=== PATIENT | female | born 1935 | race Caucasian/White ===

== ENCOUNTER 2016-10-30 19:39 | Emergency (ER) | payer MEDICARE, OTHER ==
[~2016-10-30] VITALS: Ht 167.6 cm; Wt 102.6 kg
[2016-10-30 19:54] VITALS: Ht 167.6 cm; Wt 102.6 kg
[2016-10-30 20:48] VITALS: TEMP 98.6
[2016-10-30 20:54] LABS: ADD SCAN DIFF NO
[2016-10-30 20:59] LABS: BASOPHIL # 0.1 10^3/ul (0.0-0.1); BASOPHILS % 0.8 % (0.0-2.0); EOSINOPHILS # 0.3 10^3/ul (0.0-0.5); EOSINOPHILS % 3.4 % (0.0-7.0); HEMATOCRIT 42.3 % (37.0-47.0); HEMOGLOBIN 13.6 g/dl (12.0-16.0); LYMPHOCYTES # 2.2 10^3/ul (0.8-2.9); MEAN CORPUSCULAR HEMOGLOBIN 31.2 pg (29.0-33.0); MEAN CORPUSCULAR HGB CONC 32.2 g/dl (32.0-37.0); MEAN PLATELET VOLUME 10.7 fl (7.4-10.4); MONOCYTE # 0.7 10^3/ul (0.3-0.9); MONOCYTES % 9.6 % (0.0-11.0); NEUTROPHIL # 4.3 10^3/ul (1.6-7.5); NEUTROPHILS % 57.1 % (39.0-77.0); PLATELET COUNT 178 10^3/UL (140-415); RED BLOOD COUNT 4.36 10^6/ul (4.20-5.40); RED CELL DISTRIBUTION WIDTH 12.8 % (11.5-14.5); WHITE BLOOD COUNT 7.6 10^3/ul (4.8-10.8)
[2016-10-30 21:08] LABS: POTASSIUM 4.2 mmol/L (3.5-5.1)
--- NOTE | 2016-10-30 21:08 | RADRPT ---
PROCEDURE: XR Chest. CLINICAL INDICATION: Cough TECHNIQUE: Single frontal view of the chest was obtained COMPARISON: None FINDINGS: Cardiomegaly. Atherosclerotic calcifications in the tortuous thoracic aorta. Mild patchy air space disease.. There is no pleural effusion or pneumothorax. IMPRESSION: Cardiomegaly and mild failure. RPTAT: [facility] Physician Zachery Date Time Electronically viewed and signed by Princess Faustin Physician on 10/30/2016 21:07 RS/
[2016-10-30 21:10] LABS: CREATININE 0.8 mg/dl (0.44-1.00)
[2016-10-30 21:11] LABS: CALCIUM 8.9 mg/dl (8.4-10.2)
[2016-10-30] MEDS ORDERED: ACETAMINOPHEN 325 MG TAB PO ONE (21:30)
--- NOTE | 2016-10-30 22:07 | RADRPT ---
PROCEDURE: CT brain without contrast CLINICAL INDICATION: Headaches TECHNIQUE: A CT of the brain was performed utilizing axial sections from the skull base through th e vertex without contrast. Sagittal and coronal images were also reformatted. The exam CTDIvol = 39. 64 mGy and DLP = 634.23 mGy-cm. COMPARISON: None available FINDINGS: No acute intracranial hemorrhage is identified. There is no mass effect or midline shift. No extra -axial fluid collection is seen. The ventricles and sulci are normal in size and configuration for the patient's provided age of 81 years consistent with age-appropriate generalized atrophy. The den sity of the brain is within normal limits. Diaz-white differentiation is preserved with no findings to suggest an acute ischemic infarct. The fourth ventricle is midline and there is no density alteration within the prashanth or cerebellum. The osseous structures are unremarkable. Chronic appearing mucous retention cyst or polyp within th e right maxillary sinus floors present. The remaining included paranasal sinuses and mastoid air ce lls are clear. RPTAT:HJJR IMPRESSION: 1.Appropriate generalized cerebral atrophy for the patient's provided age with no evidence of acute intracranial abnormality or mass effect. 2. Chronic-appearing right maxillary sinus disease. Physician Aicha Date Time Electronically viewed and signed by Physician Aicha on 10/30/2016 22:07 JR/
--- NOTE | 2016-10-30 22:54 | ERD ---
ER Documentation Chief Complaint Date/Time DATE: 10/30/16 TIME: 22:42 Chief Complaint COUGH X3 DAYS, ALSO C/O SINUS HEADACHES. HX AFIB HPI 81-year-old female with a history of hypertension, chronic atrial fibrillation, hyperlipidemia, depression, restless leg syndrome, late onset Alzheimer disease and restless leg syndrome brought to the ED by her daughter for evaluation of a one-week history of cough now with greenish sputum. Denies shortness of breath. Chronic rhinorrhea and allergic rhinitis but no URI symptoms, body aches, sore throat or fevers. Denies leg pain or swelling. No chest pain or palpitations. No abdominal pain, nausea vomiting. Mild, gradual onset generalized headache which she has had intermittently but now exacerbated by coughing. Denies neck or back pain. No other relieving or exacerbating factors. ROS All systems reviewed and are negative except as per history of present illness. Medications Home Meds Active Scripts Azithromycin* (Azithromycin*) 500 Mg Tablet, 500 MG PO DAILY, #6 TAB Prov:ALEXA ARAGON MD 10/30/16 Albuterol Sulfate* (Proair HFA*) 8.5 Gm Hfa.aer.ad, 2 PUFF INH Q6H Y for WHEEZING AND SOB, #1 INHALER Prov:ALEXA ARAGON MD 10/30/16 Allergies Allergies: Coded Allergies: codeine (Verified Allergy, Unknown, RASH ON HAND, 03/27/16) PMhx/Soc Reviewed in chart. As per HPI. History of Surgery: Yes (bi-lateral knee and hip replacement , thyroidectomy, 5 back surgeries) Anesthesia Reaction: No Hx Neurological Disorder: Yes (Alzheimer's) Hx Respiratory Disorders: No Hx Cardiac Disorders: Yes (htn, high cholesterol, AFIB) Hx Psychiatric Problems: Yes (Depression, RLS) Hx Miscellaneous Medical Probl: No Hx Alcohol Use: No Hx Substance Use: No Hx Tobacco Use: No Smoking Status: Never smoker FmHx No stroke or cancer. Physical Exam Vitals Vital Signs Date Time Temp Pulse Resp B/P Pulse Ox O2 Delivery O2 Flow Rate FiO2 10/30/16 23:06 74 16 156/88 100 Room Air 10/30/16 20:48 98.6 79 17 148/98 96 Room Air 10/30/16 19:54 98.4 76 20 140/85 95 Physical Exam Const: Alert, elderly, no acute distress. Head: Atraumatic Eyes: Normal Conjunctiva, pupils equal reactive to light, extraocular movements are intact. ENT: Normal External Ears, Nose and Mouth. Neck: Full range of motion. Nontender. No JVD. Resp: Breath sounds are equal bilaterally. No rales, rhonchi or wheezes. Cardio: Regular rate and rhythm, no murmurs Abd: Soft, non tender, non distended. Normal bowel sounds Skin: No petechiae or rashes Back: No midline or flank tenderness Ext: No cyanosis, or edema. No calf swelling or tenderness. Neur: Awake and alert. No focal deficit observed. Psych: Normal Mood and Affect Result Diagram: 10/30/16201410/30/162014 Results 24 hrs Laboratory Tests Test 10/30/16 20:15 Anion Gap 14 Basophils # 0.110^3/ul Basophils % 0.8% Blood Urea Nitrogen 16mg/dl Calcium Level 8.9mg/dl Carbon Dioxide Level 33mmol/L Chloride Level 103mmol/L Creatinine 0.80mg/dl Eosinophils # 0.310^3/ul Eosinophils % 3.4% Glucose Level 98mg/dl Hematocrit 42.3% Hemoglobin 13.6g/dl Lymphocytes # 2.210^3/ul Lymphocytes % 29.0% Mean Corpuscular Hemoglobin 31.2pg Mean Corpuscular Hemoglobin Concent 32.2g/dl Mean Corpuscular Volume 97.0fl Mean Platelet Volume 10.7fl Monocytes # 0.710^3/ul Monocytes % 9.6% Neutrophils # 4.310^3/ul Neutrophils % 57.1% Nucleated Red Blood Cells # 0.010^3/ul Nucleated Red Blood Cells % 0.0/100WBC Platelet Count 85529^3/UL Potassium Level 4.2mmol/L Red Blood Count 4.3610^6/ul Red Cell Distribution Width 12.8% Sodium Level 146mmol/L White Blood Count 7.610^3/ul Current Medications Medications (Trade) Dose Ordered Sig/Carol Route PRN Reason Start Time Stop Time Status Last Admin Dose Admin Acetaminophen (Tylenol Tab) 650 mg ONCE ONCE PO 10/30/16 21:30 10/30/16 21:31 DC 10/30/16 21:17 EKG: Time: 20:15. Sinus rhythm. No acute ST-T wave changes. Normal OK QRS. No axis deviation or ectopy. EP interpretation: Normal ECG. IMAGING: PROCEDURE: XR Chest. CLINICAL INDICATION: Cough TECHNIQUE: Single frontal view of the chest was obtained COMPARISON: None FINDINGS: Cardiomegaly. Atherosclerotic calcifications in the tortuous thoracic aorta. Mild patchy air space disease.. There is no pleural effusion or pneumothorax. IMPRESSION: Cardiomegaly and mild failure. RPTAT: [facility] Physician Zachery Date Time Electronically viewed and signed by Physician Zachery on 10/30/2016 21:07 RS/ Procedures/MDM DOCUMENTS REVIEWED: ED nurse, no prior records available. Clinic summary. MEDICAL DECISION MAKIN-year-old female with a history of hypertension, chronic atrial fibrillation, hyperlipidemia, depression, restless leg syndrome, late onset Alzheimer disease and restless leg syndrome brought to the ED by her daughter for evaluation of a one-week history of cough and headache. Presentation not consistent with subarachnoid hemorrhage and no CT evidence of acute bleed, infarct, mass or hydrocephalus. No signs of meningitis or encephalitis hence lumbar puncture not indicated. Pain improved significantly with Latonia 5/325. Cough and chest x-ray reveals airspace disease and cardiomegaly but she has no other signs of congestive heart failure. Possible bronchitis will be treated with a trial of inhaled beta agonists and Z-Jaylan. Pulmonary embolism is unlikely. Stable for discharge precautionary instructions and outpatient follow-up as counseled. Counseled patient and family regarding diagnostic workup, diagnosis and need for followup. Understands to return to ED if symptoms recur, worsen or any other concerns. Departure Diagnosis: Primary Impression: Cough Additional Impressions: Cephalgia Headache type: unspecified Headache chronicity pattern: unspecified pattern Intractability: not intractable Qualified Code: R51 - Nonintractable headache, unspecified chronicity pattern, unspecified headache type Essential hypertension Condition: Stable ALEXA ARAGON MD Oct 30, 2016 22:53
[2016-10-30] MEDS ORDERED: ALBU8.5H3 INH (22:58)
[2016-10-30] MEDS ORDERED: AZIT500T5 PO (22:58)
[2016-10-30 23:06] VITALS: BP 156/88; PULSE 74; RESP 16
== END 2016-10-30 23:06 | disposition home or self-care (01) ==
LOC: E/R 19:39
DX: R05 Cough (principal); R51 Headache; I10 Essential (primary) hypertension; G30.1 Alzheimer's disease with late onset; Z96.643 Presence of artificial hip joint, bilateral; Z96.653 Presence of artificial knee joint, bilateral
CPT/HCPCS: 70450; 71010; 80048; 85025; 93005

== ENCOUNTER 2017-08-28 10:52 | Inpatient (IN) | END 2017-09-05 17:40 | DRG 964 ==

== ENCOUNTER 2017-11-11 13:20 | Inpatient (IN) | END 2017-11-18 18:30 | DRG 871 ==

== ENCOUNTER 2017-12-31 16:30 | Inpatient (IN) | END 2018-01-02 17:46 | DRG 309 ==

== ENCOUNTER 2018-07-25 13:42 | Emergency (ER) | END 2018-07-25 15:53 | disposition home or self-care (01) ==

== ENCOUNTER 2018-10-17 13:42 | Emergency (ER) | payer MEDICARE, OTHER ==
[~2018-10-17] VITALS: Ht 162.6 cm; Wt 94.1 kg
[~2018-10-17 13:42] MED LIST: BACITUD TOP; BACL10TA PO; GABA300C16 PO; MEMA10TA PO; TRAM50TA PO
[2018-10-17 13:52] VITALS: BP 126/79; PULSE 69; RESP 20; Ht 162.6 cm; Wt 94.1 kg
== END 2018-10-17 16:46 | disposition left against medical advice (07) ==
LOC: E/R 13:42
DX: Z53.21 Procedure and treatment not carried out due to patient leaving prior to being seen by health care provider (principal)

== ENCOUNTER 2018-10-19 15:34 | Inpatient (IN) | payer MEDICARE, OTHER ==
[~2018-10-19] VITALS: Ht 180.3 cm; Wt 101.9 kg
[2018-10-19] VITALS (7 sets, daily range): BP systolic 145; BP diastolic 85; PULSE 83–172; RESP 20; Ht 180.3 cm; Wt 101.9 kg
[2018-10-19] MEDS ORDERED: AZITHROMYCIN 500MG/NS (PMX) 250 ML IV STA (15:56)
[2018-10-19] MEDS ORDERED: CEFTRIAXONE 1 GM/50 ML (PMX) 50 ML IVPB STA (15:56)
[2018-10-19] MEDS ORDERED: ALBUTEROL 0.5% (NEB) 2.5 MG/0.5 ML AMP INH STA (15:59)
[2018-10-19] MEDS ORDERED: IPRATROPIUM (NEB) 0.5 MG/2.5 ML AMP INH STA (15:59)
[2018-10-19] MEDS ORDERED: DEXAMETHASONE 10 MG/ML 1 ML INJ IV ONE (16:00)
[2018-10-19] MEDS ORDERED: IOHEXOL 100 ML ONE (17:43)
[2018-10-19] MEDS ORDERED: SOD CHLORIDE 0.9% 100 ML ONE (17:43)
[2018-10-19] MEDS ORDERED: traMADol 50 MG TAB PO PRN (18:30)
[2018-10-19] MEDS ORDERED: METO-448 PO (18:48)
[2018-10-19] MEDS ORDERED: FLUO10TA PO (18:49)
[2018-10-19] MEDS ORDERED: APIX5TAB PO (18:49)
[2018-10-19] MEDS ORDERED: DONE10TA7 PO (18:49)
[2018-10-19] MEDS ORDERED: FER325 PO (18:49)
--- NOTE | 2018-10-19 18:49 | HP ---
Date/Time of Note Date/Time of Note DATE: 10/19/18 TIME: 18:36 Assessment/Plan VTE Prophylaxis SCD applied (from Nsg): Yes Pharmacological prophylaxis: apixaban Lines/Catheters IV Catheter Type (from Nrsg): Saline Lock Assessment/Plan Assessment/Plan 1. Acute shortness of breath - came in saturating 60% and placed on NC with improvement in saturations - CXR concerning for pneumonia and CTA performed but results pending - Will start on broad spectrum antibiotics for CAP - Nebs PRN - O2 as needed 2. DVT - recently seen by PMD who repeat dopplers and states clot dissolving - continue on Eliquis 3. Community acquired Pneumonia - nebs, IV antibiotics, O2 PRN 4. Anemia, iron deficiency - continue home iron supplements 5. Mild dementia - continue Namenda 6. Elevated BNP - will give a dose of Lasix - ECHO ordered to assess EF 7. Diet - Cardiac 8. Disposition - Admit to telemetry for treatment of CAP and hypoxia Result Diagram: 10/19/18 1606 10/19/18 1606 Results 24hrs Laboratory Tests Test 10/19/18 16:06 10/19/18 17:19 10/19/18 18:25 White Blood Count 12.7 #H Red Blood Count 3.79 L Hemoglobin 9.6 #L Hematocrit 34.5 L Mean Corpuscular Volume 91.0 Mean Corpuscular Hemoglobin 25.3 L Mean Corpuscular Hemoglobin Concent 27.8 L Red Cell Distribution Width 15.4 H Platelet Count 313 # Mean Platelet Volume 10.0 Immature Granulocytes % 0.900 H Neutrophils % 77.6 H Lymphocytes % 17.4 Monocytes % 3.3 Eosinophils % 0.3 Basophils % 0.5 Nucleated Red Blood Cells % 0.0 Immature Granulocytes # 0.110 H Neutrophils # 9.8 H Lymphocytes # 2.2 Monocytes # 0.4 Eosinophils # 0.0 Basophils # 0.1 Nucleated Red Blood Cells # 0.0 Prothrombin Time 19.1 H Prothrombin Time Ratio 1.5 INR International Normalized Ratio 1.60 Activated Partial Thromboplast Time 29.6 Sodium Level 140 Potassium Level 3.8 Chloride Level 106 Carbon Dioxide Level 31 Anion Gap 3 L Blood Urea Nitrogen 16 Creatinine 0.58 Est Glomerular Filtrat Rate mL/min Glucose Level 188 Calcium Level 8.3 L Total Bilirubin 0.3 Direct Bilirubin 0.00 Indirect Bilirubin 0.3 Aspartate Amino Transf (AST/SGOT) 23 Alanine Aminotransferase (ALT/SGPT) 21 Alkaline Phosphatase 94 Troponin I < 0.012 B-Type Natriuretic Peptide 1690 H Total Protein 6.7 Albumin 3.6 Globulin 3.10 Albumin/Globulin Ratio 1.16 Urine Color RED Urine Clarity CLOUDY A Urine pH 5.0 Urine Specific [place] 1.028 Urine Ketones NEGATIVE Urine Nitrite POSITIVE A Urine Bilirubin 1+ H Urine Urobilinogen NEGATIVE Urine Leukocyte Esterase TRACE A Urine Microscopic RBC > 182 H Urine Microscopic WBC 52 H Urine Squamous Epithelial Cells FEW Urine Bacteria MANY A Urine Mucus FEW A Urine Yeast (Budding) FEW A Urine Hemoglobin 3+ H Urine Glucose NEGATIVE Urine Total Protein 2+ H POC Venous Lactate 2.8 *H HPI/ROS Admit Date/Time Admit Date/Time 10/19/18 1830 Hx of Present Illness 83 yo F with PMH DVT, dementia, and anemia presented to ED with worsening shortness of breath since Monday. Patient states she was experiencing headache, nasal congestion, and subjective fevers since Monday. She also felt as if she couldn't catch her breath which started when she was laying supine. She then developed cough with productive sputum on Monday and decided to finally seek treatment. Family at bedside and admits people in their congregation have been all getting sick with flu like symptoms and she seems to be the last one to contract something. She was seen by her PCP 2 weeks ago for wellness check and diagnosed with anemia as well. Per family, she was in a correction most of 2017 and after discharge was complaining of pain in left left as well as swelling. She was diagnosed with DVT in June of 2018. Patient denies chest pain, nausea, vomiting, wheezing, dizziness, palpitations, constipation, diarrhea, or urinary issues. Of note she was found with O2 saturations 60% in the field and improved after neb treatments. ROS All 12 systems reviewed and pertinent positives as per HPI. All others negative. Constitutional: No chills, No nausea Eyes: No discharge ENT: congestion Respiratory: cough, shortness of breath, sputum; No wheezing Cardiovascular: edema; No chest pain, No lightheadedness, No palpitations Gastrointestinal: No pain, No constipation, No diarrhea, No nausea, No vomiting Genitourinary: no complaints Musculoskeletal: no complaints Skin: no complaints Neurologic: headache; No confusion, No focal-weakness Endocrine: No dry skin Lymphatic: no complaints Psychological: nl mood/affect Immunologic: no complaints PMH/Family/Social Past Medical History Medical History: other (dementia, anemia, DVT) Medications Current Medications Baclofen (Lioresal) 10 mg Q8 PO ; Start 10/19/18 at 22:00; Status UNV Gabapentin (Neurontin) 300 mg TID PO ; Start 10/19/18 at 21:00; Status UNV Memantine (Namenda) 10 mg DAILY PO ; Start 10/20/18 at 09:00; Status UNV Tramadol HCl (Ultram) 50 mg Q6H PRN PO PAIN; Start 10/19/18 at 18:30; Status UNV Apixaban (Eliquis) 5 mg BID PO ; Start 10/19/18 at 21:00; Status UNV Coded Allergies: codeine (Verified Allergy, Unknown, RASH ON HAND, 12/28/17) Past Surgical History Past Surgical Hx: other (knee replacement x2, back surgery) Family History Significant Family History: no pertinent family hx Social History Alcohol Use: none Smoking Status: Never smoker Drug Use: none Exam/Review of Systems Vital Signs Vitals Vital Signs Date Temp Pulse Resp B/P (MAP) Pulse Ox O2 O2 Flow FiO2 Time Delivery Rate 10/19/18 98.2 77 22 145/88 90 16:06 (107) 10/19/18 Nasal 5 15:45 Cannula Exam Exam General: Patient is a pleasant female, no acute distress, dry mucous membranes HEENT: Atraumatic, normocephalic. The pupils are equal, round and reactive. Ext raocular motor are intact Neck: Supple with full range of motion. No rigidity or meningismus Chest: nontender Lungs: Clear to auscultation bilaterally no crackles rales or wheezing Heart: Normal S1-S2, Regular rate and rhythm. no murmurs Abdomen: Soft , nontender, nondistended , bowel sounds are present. No guarding no rebound tenderness , No masses or organomegaly. No costovertebral temporal angle mass Extremities: Scars appreciated on knees bilaterally, swelling but no edema LE Neurologic: Normal mental status, speech normal, cranial nerves II through XII are intact, motor and sensory are intact, Additional Comments Home medications reviewed PROCEDURE: XR Chest. CLINICAL INDICATION: Possible Sepsis TECHNIQUE: Portable AP view of the chest was obtained. COMPARISON: CR CHEST 10/30/2016 FINDINGS: Bibasilar pulmonary opacities with small pleural effusions. No pneumothorax. Mild cardiomegaly. Diffuse osteopenia. IMPRESSION: Small pleural effusions with adjacent air space disease. Findings concerning for pneumonia or aspiration in the setting of reported sepsis. RPTAT: XX Tigist Arenas Physician Date Time Electronically viewed and signed by Tigist Arenas, Physician on 10/19/2018 17:00 ASHWIN TAYLOR MD Oct 19, 2018 18:48
[2018-10-19] MEDS ORDERED: TEMA15CA6 PO (18:51)
[2018-10-19] MEDS ORDERED: PRAV40TA76 PO (18:52)
[2018-10-19] MEDS ORDERED: DOCUSATE SODIUM 100 MG CAP PO PRN (19:00)
[2018-10-19] MEDS ORDERED: ACETAMINOPHEN 325 MG TAB PO PRN (19:00)
[2018-10-19] MEDS ORDERED: MAGNESIUM HYDROXIDE 30ML CUP PO PRN (19:00)
[2018-10-19] MEDS ORDERED: ALBUTEROL 0.083% (NEB) 2.5 MG/3 ML AMP NEB PRN (19:00)
[2018-10-19] MEDS ORDERED: AZITHROMYCIN 500MG/NS (PMX) 250 ML IV SCH (19:00)
[2018-10-19] MEDS ORDERED: NACL 0.9% 3 ML SYG IV SCH (19:00)
[2018-10-19] MEDS ORDERED: CEFTRIAXONE 1 GM/50 ML (PMX) 50 ML IVPB SCH (19:00)
[2018-10-19] MEDS ORDERED: FUROSEMIDE 40 MG INJ IV ONE (19:00)
[2018-10-19] MEDS ORDERED: ONDANSETRON 4 MG INJ IV PRN (19:00)
[2018-10-19] MEDS: GABAPENTIN 300 MG CAP PO SCH (21:43)
[2018-10-19] MEDS: FAMOTIDINE 20 MG TAB PO SCH (21:44)
[2018-10-19] MEDS: BACLOFEN 10 MG TAB PO SCH (21:44)
[2018-10-19] MEDS: APIXABAN 5 MG TABLET PO SCH (21:45)
[2018-10-19] MEDS ORDERED: SOD CHLORIDE 0.9% 500 ML IV ONE (22:00)
[2018-10-19] MEDS ORDERED: METOPROLOL 5 MG INJ IV ONE (23:00)
[2018-10-19] MEDS ORDERED: DILTIAZEM 25 MG INJ IV ONE (23:27)
[2018-10-20] VITALS (10 sets, daily range): BP systolic 101–124; BP diastolic 57–78; PULSE 58–145; RESP 16–22
[2018-10-20] MEDS ORDERED: DILTIAZEM 25 MG INJ IV ONE (01:00)
[2018-10-20] MEDS: METOPROLOL 25 MG TAB PO SCH ×4 (02:17→21:35)
[2018-10-20] MEDS ORDERED: DILTIAZEM-D5W 125MG/125ML DRIP 125 ML IV SCH (04:15)
[2018-10-20] MEDS: BACLOFEN 10 MG TAB PO SCH ×3 (06:30→21:34)
[2018-10-20] MEDS ORDERED: FUROSEMIDE 40 MG INJ IV SCH (09:00)
[2018-10-20] MEDS ORDERED: METOPROLOL 25 MG TAB PO SCH (09:00)
[2018-10-20] MEDS: MEMANTINE 10 MG TAB PO SCH (09:53)
[2018-10-20] MEDS: FERROUS SULFATE (EC) 325 MG TAB PO SCH (09:53)
[2018-10-20] MEDS: FAMOTIDINE 20 MG TAB PO SCH ×2 (09:53→21:34)
[2018-10-20] MEDS: APIXABAN 5 MG TABLET PO SCH ×2 (09:53→21:34)
[2018-10-20] MEDS: GABAPENTIN 300 MG CAP PO SCH ×3 (09:53→21:34)
--- NOTE | 2018-10-20 09:54 | PN ---
Date/Time of Note Date/Time of Note DATE: 10/20/18 TIME: 09:54 Assessment/Plan VTE Prophylaxis Risk score (from [facility] [place]0 risk: 5 SCD applied (from [facility] [place]): No SCD contraindicated: other Pharmacological prophylaxis: apixaban Lines/Catheters [facility] Saline Lock Assessment/Plan Assessment/Plan 1. Afib with RVR - Cardiology consultation appreciated and will continue on BB and if RVR persists will place on amiodarone 2. Acute on chronic diastolic HF - ECHO results pending - CXR/CT chest shows pulmonary edema - Lasix on board 3. UTI - patient does admit to burning - Urine cx noted with gram neg rods 4. RLE DVT - recently seen by PMD who repeat dopplers and states clot dissolving - continue on Eliquis 5. Anemia, iron deficiency - continue home iron supplements 6. Alzhemiers Dementia - continue Namenda 7. Disposition - continue diuresing and monitoring HR in telemetry - If remains stable, will d/c in next 24-48 hours Result Diagram: 10/20/182 10/20/18 0452 Results 24hrs Laboratory Tests Test 10/19/18 16:06 10/19/18 17:19 10/19/18 18:25 10/19/18 20:44 White Blood Count 12.7 #H Red Blood Count 3.79 L Hemoglobin 9.6 #L Hematocrit 34.5 L Mean Corpuscular 91.0 Volume Mean Corpuscular 25.3 L Hemoglobin Mean Corpuscular 27.8 L Hemoglobin Concent Red Cell 15.4 H Distribution Width Platelet Count 313 # Mean Platelet Volume 10.0 Immature 0.900 H Granulocytes % Neutrophils % 77.6 H Lymphocytes % 17.4 Monocytes % 3.3 Eosinophils % 0.3 Basophils % 0.5 Nucleated Red Blood 0.0 Cells % Immature 0.110 H Granulocytes # Neutrophils # 9.8 H Lymphocytes # 2.2 Monocytes # 0.4 Eosinophils # 0.0 Basophils # 0.1 Nucleated Red Blood 0.0 Cells # Prothrombin Time 19.1 H Prothrombin Time 1.5 Ratio INR International 1.60 Normalized Ratio Activated 29.6 Partial Thromboplast Time Sodium Level 140 Potassium Level 3.8 Chloride Level 106 Carbon Dioxide Level 31 Anion Gap 3 L Blood Urea Nitrogen 16 Creatinine 0.58 Est Glomerular Filtrat Rate mL/min Glucose Level 188 Calcium Level 8.3 L Total Bilirubin 0.3 Direct Bilirubin 0.00 Indirect Bilirubin 0.3 Aspartate Amino 23 Transf (AST/SGOT) Alanine 21 Aminotransferase (AL T/SGPT) Alkaline Phosphatase 94 Troponin I < 0.012 B-Type Natriuretic 1690 H Peptide Total Protein 6.7 Albumin 3.6 Globulin 3.10 Albumin/Globulin 1.16 Ratio Urine Color RED Urine Clarity CLOUDY A Urine pH 5.0 Urine Specific 1.028 [place] Urine Ketones NEGATIVE Urine Nitrite POSITIVE A Urine Bilirubin 1+ H Urine Urobilinogen NEGATIVE Urine Leukocyte TRACE A Esterase Urine Microscopic > 182 H RBC Urine Microscopic 52 H WBC Urine Squamous FEW Epithelial Cells Urine Bacteria MANY A Urine Mucus FEW A Urine Yeast FEW A (Budding) Urine Hemoglobin 3+ H Urine Glucose NEGATIVE Urine Total Protein 2+ H POC Venous Lactate 2.8 *H Lactic Acid Level 3.0 *H Test 10/20/18 04:52 White Blood Count 5.8 # Red Blood Count 3.29 L Hemoglobin 8.5 L Hematocrit 29.7 L Mean Corpuscular 90.3 Volume Mean Corpuscular 25.8 L Hemoglobin Mean Corpuscular 28.6 L Hemoglobin Concent Red Cell 15.4 H Distribution Width Platelet Count 215 # Mean Platelet Volume 10.7 H Immature 0.300 Granulocytes % Neutrophils % 77.0 Lymphocytes % 16.1 Monocytes % 6.4 Eosinophils % 0.0 Basophils % 0.2 Nucleated Red Blood 0.0 Cells % Immature 0.020 Granulocytes # Neutrophils # 4.4 Lymphocytes # 0.9 Monocytes # 0.4 Eosinophils # 0.0 Basophils # 0.0 Nucleated Red Blood 0.0 Cells # Sodium Level 144 Potassium Level 4.2 Chloride Level 105 Carbon Dioxide Level 31 Anion Gap 8 Blood Urea Nitrogen 15 Creatinine 0.63 Est Glomerular Filtrat Rate mL/min Glucose Level 128 # Lactic Acid Level 2.2 *H Calcium Level 8.4 Magnesium Level 2.0 Thyroid Stimulating 1.060 Hormone (TSH) Subjective 24 Hr Interval Summary Free Text/Dictation Patient still with some respiratory distress but improved since admission. Denies any acute issues. Found in afib with RVR this am and started on Cardizem drip. Exam/Review of Systems Exam Vitals Vital Signs Date Temp Pulse Resp B/P (MAP) Pulse Ox O2 O2 Flow FiO2 Time Delivery Rate 10/20/18 67 09:03 10/20/18 Nasal 2.0 07:46 Cannula 10/20/18 98.1 16 101/58 99 07:38 (72) Exam General: Patient is a pleasant female, no acute distress, dry mucous membranes Neck: Supple Chest: nontender Lungs: Clear to auscultation bilaterally no crackles rales or wheezing Heart: Normal S1-S2, irregular rhythm, tachycardia, systolic murmurs Abdomen: Soft , nontender, nondistended , bowel sounds are present. No guarding no rebound tenderness , Extremities: Scars appreciated on knees bilaterally, swelling RLE Results Results 24hrs Laboratory Tests Test 10/19/18 16:06 10/19/18 17:19 10/19/18 18:25 10/19/18 20:44 White Blood Count 12.7 #H Red Blood Count 3.79 L Hemoglobin 9.6 #L Hematocrit 34.5 L Mean Corpuscular 91.0 Volume Mean Corpuscular 25.3 L Hemoglobin Mean Corpuscular 27.8 L Hemoglobin Concent Red Cell 15.4 H Distribution Width Platelet Count 313 # Mean Platelet Volume 10.0 Immature 0.900 H Granulocytes % Neutrophils % 77.6 H Lymphocytes % 17.4 Monocytes % 3.3 Eosinophils % 0.3 Basophils % 0.5 Nucleated Red Blood 0.0 Cells % Immature 0.110 H Granulocytes # Neutrophils # 9.8 H Lymphocytes # 2.2 Monocytes # 0.4 Eosinophils # 0.0 Basophils # 0.1 Nucleated Red Blood 0.0 Cells # Prothrombin Time 19.1 H Prothrombin Time 1.5 Ratio INR International 1.60 Normalized Ratio Activated 29.6 Partial Thromboplast Time Sodium Level 140 Potassium Level 3.8 Chloride Level 106 Carbon Dioxide Level 31 Anion Gap 3 L Blood Urea Nitrogen 16 Creatinine 0.58 Est Glomerular Filtrat Rate mL/min Glucose Level 188 Calcium Level 8.3 L Total Bilirubin 0.3 Direct Bilirubin 0.00 Indirect Bilirubin 0.3 Aspartate Amino 23 Transf (AST/SGOT) Alanine 21 Aminotransferase (AL T/SGPT) Alkaline Phosphatase 94 Troponin I < 0.012 B-Type Natriuretic 1690 H Peptide Total Protein 6.7 Albumin 3.6 Globulin 3.10 Albumin/Globulin 1.16 Ratio Urine Color RED Urine Clarity CLOUDY A Urine pH 5.0 Urine Specific 1.028 [place] Urine Ketones NEGATIVE Urine Nitrite POSITIVE A Urine Bilirubin 1+ H Urine Urobilinogen NEGATIVE Urine Leukocyte TRACE A Esterase Urine Microscopic > 182 H RBC Urine Microscopic 52 H WBC Urine Squamous FEW Epithelial Cells Urine Bacteria MANY A Urine Mucus FEW A Urine Yeast FEW A (Budding) Urine Hemoglobin 3+ H Urine Glucose NEGATIVE Urine Total Protein 2+ H POC Venous Lactate 2.8 *H Lactic Acid Level 3.0 *H Test 10/20/18 04:52 White Blood Count 5.8 # Red Blood Count 3.29 L Hemoglobin 8.5 L Hematocrit 29.7 L Mean Corpuscular 90.3 Volume Mean Corpuscular 25.8 L Hemoglobin Mean Corpuscular 28.6 L Hemoglobin Concent Red Cell 15.4 H Distribution Width Platelet Count 215 # Mean Platelet Volume 10.7 H Immature 0.300 Granulocytes % Neutrophils % 77.0 Lymphocytes % 16.1 Monocytes % 6.4 Eosinophils % 0.0 Basophils % 0.2 Nucleated Red Blood 0.0 Cells % Immature 0.020 Granulocytes # Neutrophils # 4.4 Lymphocytes # 0.9 Monocytes # 0.4 Eosinophils # 0.0 Basophils # 0.0 Nucleated Red Blood 0.0 Cells # Sodium Level 144 Potassium Level 4.2 Chloride Level 105 Carbon Dioxide Level 31 Anion Gap 8 Blood Urea Nitrogen 15 Creatinine 0.63 Est Glomerular Filtrat Rate mL/min Glucose Level 128 # Lactic Acid Level 2.2 *H Calcium Level 8.4 Magnesium Level 2.0 Thyroid Stimulating 1.060 Hormone (TSH) Medications Medication Current Medications Baclofen (Lioresal) 10 mg Q8 PO Last administered on 10/20/18at 06:30; Admin Dose 10 MG; Start 10/19/18 at 22:00 Gabapentin (Neurontin) 300 mg TID PO Last administered on 10/20/18at 09:53; Admin Dose 300 MG; Start 10/19/18 at 21:00 Memantine (Namenda) 10 mg DAILY PO Last administered on 10/20/18at 09:53; Admin Dose 10 MG; Start 10/20/18 at 09:00 Tramadol HCl (Ultram) 50 mg Q6H PRN PO PAIN; Start 10/19/18 at 18:30 Apixaban (Eliquis) 5 mg BID PO Last administered on 10/20/18at 09:53; Admin Dose 5 MG; Start 10/19/18 at 21:00 IV Flush (NS 3 ml) 3 ml PER PROTOCOL IV ; Start 10/19/18 at 19:00 Ondansetron HCl (Zofran Inj) 4 mg Q6H PRN IV NAUSEA/VOMITING; Start 10/19/18 at 19:00 Acetaminophen (Tylenol Tab) 650 mg Q6H PRN PO .PAIN 1-3 OR TEMP; Start 10/19/18 at 19:00 Docusate Sodium (Colace) 100 mg Q12H PRN PO .CONSTIPATION; Start 10/19/18 at 19 :00 Magnesium Hydroxide (Milk Of Mag) 30 ml DAILY PRN PO .CONSTIPATION; Start 10/19/18 at 19:00 Famotidine (Pepcid) 20 mg Q12 PO Last administered on 10/20/18 09:53; Admin Dose 20 MG; Start 10/19/18 at 21:00 Ceftriaxone Sodium 50 ml @ 100 mls/hr Q24H IVPB Last administered on 10/19/18 21:47; Admin Dose 100 MLS/HR; Start 10/19/18 at 19:00 Albuterol (Proventil 0.083% (Neb)) 2.5 mg Q2H RESP THERAPY PRN NEB SHORTNESS OF BREATH; Start 10/19/18 at 19:00 Ferrous Sulfate (Ferrous Sulfate (Ec)) 325 mg DAILY PO Last administered on 10/20/18 09:53; Admin Dose 325 MG; Start 10/20/18 at 09:00 Furosemide (Lasix) 40 mg DAILY IV ; Start 10/20/18 at 09:00 Metoprolol Tartrate (Lopressor) 25 mg BID PO Last administered on 10/20/18 09:54; Admin Dose 25 MG; Start 10/20/18 at 01:00 Diltiazem HCl 125 ml @ 5 mls/hr TITRATE IV Last administered on 10/20/18 04:52; Admin Dose 5 MLS/HR; Start 10/20/18 at 04:15 ASHWIN TAYLOR MD Oct 20, 2018 09:54
[2018-10-20] MEDS: VITAMIN A & D 5 GM OINT PACKET TOP PRN ×2 (12:13→17:20)
--- NOTE | 2018-10-20 13:05 | ERD ---
ER Documentation Chief Complaint Chief Complaint SOB started this morning low o2 saturation HPI This is a 83-year-old female presents for evaluation of shortness of breath, brought in by EMS with a low oxygen saturation, which the report was in the 60s. Patient states that she has been having symptoms for the last 2-3 days, she is worried that she may have had a pneumonia. She has not had any leg swelling, no hemoptysis, no weight gain, no orthopnea or PND. ROS All systems reviewed and are negative except as per history of present illness. Medications Home Meds Reported Medications Pravastatin Sodium* (Pravastatin Sodium*) 40 Mg Tablet, 40 MG PO HS, TAB 10/19/18 Temazepam* (Restoril*) 15 Mg Capsule, 15 MG PO HS PRN for INSOMNIA, CAP 10/19/18 Fluoxetine Hcl* (Fluoxetine Hcl*) 10 Mg Tablet, 10 MG PO DAILY, TAB 10/19/18 Donepezil* (Aricept*) 10 Mg Tablet, 10 MG PO DAILY, TAB 10/19/18 Ferrous Sulfate* (Ferrous Sulfate*) 325 Mg Tabec, 325 MG PO BID, TAB 10/19/18 Apixaban* (Eliquis*) 5 Mg Tablet, 5 MG PO BID, TAB 10/19/18 Metoprolol Tartrate* (Lopressor*) 25 Mg Tab, 25 MG PO BID, #60 TAB 10/19/18 Memantine* (Namenda*) 10 Mg Tablet, 10 MG PO DAILY, #30 TAB 12/28/17 Tramadol Hcl* (Ultram*) 50 Mg Tablet, 50 MG PO Q6H PRN for PAIN, TAB 12/28/17 Discontinued Reported Medications Gabapentin* (Gabapentin*) 300 Mg Capsule, 300 MG PO TID, #90 CAP 12/28/17 Baclofen* (Baclofen*) 10 Mg Tablet, 10 MG PO Q8, TAB 12/28/17 Discontinued Scripts Bacitracin* (Bacitracin Oint (UD)*) 1 Applic Oint, 1 APPLIC TOP ONCE, #7 PKT APPLY TO Prov:CLAIRE ALLRED PA-C 07/25/18 Allergies Allergies: Coded Allergies: codeine (Verified Allergy, Unknown, RASH ON HAND, 10/19/18) PMhx/Soc History of Surgery: Yes (B Hip/knee , Thyroidectomy) Anesthesia Reaction: No (unk) Hx Neurological Disorder: No Hx Respiratory Disorders: No Hx Cardiac Disorders: Yes (HTN, Paroxymal Afib) Hx Psychiatric Problems: Yes (Depression, Dementia) Hx Miscellaneous Medical Probl: No (DVT, PNA, ANEMIA , MILD DEMENTIA .S/P RAHEEM.TKA .) Hx Alcohol Use: No Hx Substance Use: No Hx Tobacco Use: No Smoking Status: Unknown if ever smoked Physical Exam Vitals Vital Signs Date Temp Pulse Resp B/P (MAP) Pulse Ox O2 O2 Flow FiO2 Time Delivery Rate 10/19/18 98.2 77 22 145/88 90 16:06 (107) 10/19/18 Nasal 5 15:45 Cannula 10/19/18 Nasal 5.0 15:45 Cannula Physical Exam Const: No acute distress Head: Atraumatic Eyes: Normal Conjunctiva ENT: Normal External Ears, Nose and Mouth. Neck: Full range of motion. No meningismus. Resp: There is bilateral expiratory wheezing, there is no JVD Cardio: Regular rate and rhythm, no murmurs Abd: Soft, non tender, non distended. Normal bowel sounds Skin: No petechiae or rashes Back: No midline or flank tenderness Ext: No cyanosis, or edema Neur: Awake and alert Psych: Normal Mood and Affect Result Diagram: 10/20/1845110/20/18 0452 Results 24 hrs Laboratory Tests Test 10/19/18 16:06 10/19/18 17:19 White Blood Count 12.7 10^3/ul Red Blood Count 3.79 10^6/ul Hemoglobin 9.6 g/dl Hematocrit 34.5 % Mean Corpuscular Volume 91.0 fl Mean Corpuscular Hemoglobin 25.3 pg Mean Corpuscular Hemoglobin Concent 27.8 g/dl Red Cell Distribution Width 15.4 % Platelet Count 313 10^3/UL Mean Platelet Volume 10.0 fl Immature Granulocytes % 0.900 % Neutrophils % 77.6 % Lymphocytes % 17.4 % Monocytes % 3.3 % Eosinophils % 0.3 % Basophils % 0.5 % Nucleated Red Blood Cells % 0.0 /100WBC Immature Granulocytes # 0.110 10^3/ul Neutrophils # 9.8 10^3/ul Lymphocytes # 2.2 10^3/ul Monocytes # 0.4 10^3/ul Eosinophils # 0.0 10^3/ul Basophils # 0.1 10^3/ul Nucleated Red Blood Cells # 0.0 10^3/ul Prothrombin Time 19.1 Sec Prothrombin Time Ratio 1.5 INR International Normalized Ratio 1.60 Activated Partial Thromboplast Time 29.6 Sec Sodium Level 140 mmol/L Potassium Level 3.8 mmol/L Chloride Level 106 mmol/L Carbon Dioxide Level 31 mmol/L Anion Gap 3 Blood Urea Nitrogen 16 mg/dl Creatinine 0.58 mg/dl Est Glomerular Filtrat Rate mL/min mL/min Glucose Level 188 mg/dl Calcium Level 8.3 mg/dl Total Bilirubin 0.3 mg/dl Direct Bilirubin 0.00 mg/dl Indirect Bilirubin 0.3 mg/dl Aspartate Amino Transf (AST/SGOT) 23 IU/L Alanine Aminotransferase (ALT/SGPT) 21 IU/L Alkaline Phosphatase 94 IU/L Troponin I < 0.012 ng/ml B-Type Natriuretic Peptide 1690 PG/ML Total Protein 6.7 g/dl Albumin 3.6 g/dl Globulin 3.10 g/dl Albumin/Globulin Ratio 1.16 Urine Color RED Urine Clarity CLOUDY Urine pH 5.0 Urine Specific [place] 1.028 Urine Ketones NEGATIVE mg/dL Urine Nitrite POSITIVE mg/dL Urine Bilirubin 1+ mg/dL Urine Urobilinogen NEGATIVE mg/dL Urine Leukocyte Esterase TRACE Sarah/ul Urine Microscopic RBC > 182 /HPF Urine Microscopic WBC 52 /HPF Urine Squamous Epithelial Cells FEW /HPF Urine Bacteria MANY /HPF Urine Mucus FEW /HPF Urine Yeast (Budding) FEW /HPF Urine Hemoglobin 3+ mg/dL Urine Glucose NEGATIVE mg/dL Urine Total Protein 2+ mg/dl Current Medications Medications Dose Sig/Carol Start Time Status Last (Trade) Ordered Route PRN Stop Time Admin Dose Reason Admin Ceftriaxone 50 ml @ ONCE STAT 10/19/18 DC 10/19/18 Sodium 100 mls/hr IVPB 15:56 16:13 10/19/18 16:25 Azithromycin 250 ml @ ONCE STAT 10/19/18 DC 10/19/18 250 mls/hr IV 15:56 16:21 10/19/18 16:55 Ipratropium 0.5 mg ONCE STAT 10/19/18 DC 10/19/18 [place] [facility] 15:59 16:24 (Atrovent 10/19/18 16:01 0.02% (Neb)) Albuterol 15 mg ONCE STAT 10/19/18 DC 10/19/18 (Proventil INH 15:59 16:24 0.5% (Neb)) 10/19/18 16:01 10 mg ONCE ONCE 10/19/18 DC 10/19/18 Dexamethasone IV 16:00 16:14 (Decadron) 10/19/18 16:01 Sodium 100 ml @ ud STK-MED 10/19/18 DC Chloride ONCE .ROUTE 17:43 10/19/18 17:44 Iohexol 100 ml @ ud STK-MED 10/19/18 DC ONCE .ROUTE 17:43 10/19/18 17:44 Procedures/MDM 83-year-old female presents for [place] cough, wheezing, and shortness of breath. Patient presented acutely hypoxic, was given nebulized treatment steroids, her chest x-ray showed bilateral pleural effusions, which is concerning for infection, continuation with CHF which may be a component of it, however she does not appear acutely volume overloaded, she was treated for sepsis, but given questionable findings of pleural effusions, as well as the fact that she remained hemodynamically stable, I do not feel that she meets septic shock criteria. Patient will be admitted to medicine, she had CT angiogram which showed no evidence of pulmonary embolism. Patient admitted to Dr. Siu. EKG: Rate/Rhythm: Normal Sinus Rhythm QRS, ST, T-waves: No changes consistent w/ acute ischemia Impression: No evidence of ischemia or arrhythmia Sepsis Documentation: Patient's infectious symptoms have not stabilized and the patient is at risk of rapid decompensation. The patient will be admitted for careful hydration, antibiotic therapy, and infectious source control. SEVERE SEPSIS CRITERIA: Infectious source: Pulmonary End organ damage indicated by: SEPSIS MANAGEMENT Time of recognition of sepsis: 4:52 PM]. Time of recognition of severe sepsis: A 52 per]. Time of recognition of septic shock: [No septic shock at this time]. 3 HOUR BUNDLE Blood cultures x 2 before broad-spectrum antibiotics: [Yes] 30 ml/kg NS bolus no given concern for possible CHF Initial lactate 2.8 Repeat lactate pending at the time of admission CRITICAL CARE Critical care time [35] minutes Emergent fluid management while maintaining close respiratory support. Provision of immediate and broad-spectrum antibiotic therapy. Simultaneous assessment for possible sources in order to direct targeted therapy. Consideration for invasive and chemical support to prevent cardiopulmonary collapse. Critical care time is independent of procedures performed. Departure Diagnosis: Primary Impression: Shortness of breath Condition: Stable SIMA AGRAWAL MD Oct 20, 2018 13:05
--- NOTE | 2018-10-20 13:33 | CONS ---
Assessment/Plan Assessment/Plan Hospital Course (Demo Recall) Paroxysmal atrial fibrillation: Now back in sinus. Already on Eliquis. If recurrence, would place on amiodarone drip and consider mcc amiodarone PO Acute ?diastolic CHF: Unknown EF. Mild CHF by exam Possible CAP UTI h/o right leg DVT Dementia: mild -change to lasix 20mg IV BID, likely switch to PO tomorrow -continue Eliquis 5mg BID -metoprolol 25mg BID -amiodarone drip if recurrence and persistent afib Consultation Date/Type/Reason Admit Date/Time 10/19/181829 Date of Consultation: Oct 20, 2018 Type of Consult Cardiology Reason for Consultation Afib, CHF Requesting Provider: ASHWIN TAYLOR MD Date/Time of Note DATE: 10/20/18 TIME: 13:25 Hx of Present Illness 83 yo F with a h/o right leg DVT 07/15 on Eliquis, mild dementia, who presented with dyspnea. She was treated for CAP initially. Chest CTA was done showing no PE. Overnight she developed atrial fibrillation with RVR which is a new diagnosis for her. Her rats were difficult to control and she was placed on diltiazem drip. She converted back to sinus this am. She notes one week of progressive dyspnea on exertion and worsening edema. She also had nasal drip and dry cough. No fevers or sore throat. She thought she had the flu and was taking OTC medications. She is forgetful at times. No prior cardiac history. She is a retired RN. per HPI Past Medical History per hPI Medical History: other (dementia, anemia, DVT) Home Meds Reported Medications Pravastatin Sodium* (Pravastatin Sodium*) 40 Mg Tablet, 40 MG PO HS, TAB 10/19/18 Temazepam* (Restoril*) 15 Mg Capsule, 15 MG PO HS PRN for INSOMNIA, CAP 10/19/18 Fluoxetine Hcl* (Fluoxetine Hcl*) 10 Mg Tablet, 10 MG PO DAILY, TAB 10/19/18 Donepezil* (Aricept*) 10 Mg Tablet, 10 MG PO DAILY, TAB 10/19/18 Ferrous Sulfate* (Ferrous Sulfate*) 325 Mg Tabec, 325 MG PO BID, TAB 10/19/18 Apixaban* (Eliquis*) 5 Mg Tablet, 5 MG PO BID, TAB 10/19/18 Metoprolol Tartrate* (Lopressor*) 25 Mg Tab, 25 MG PO BID, #60 TAB 10/19/18 Memantine* (Namenda*) 10 Mg Tablet, 10 MG PO DAILY, #30 TAB 12/28/17 Tramadol Hcl* (Ultram*) 50 Mg Tablet, 50 MG PO Q6H PRN for PAIN, TAB 12/28/17 Discontinued Reported Medications Gabapentin* (Gabapentin*) 300 Mg Capsule, 300 MG PO TID, #90 CAP 12/28/17 Baclofen* (Baclofen*) 10 Mg Tablet, 10 MG PO Q8, TAB 12/28/17 Discontinued Scripts Bacitracin* (Bacitracin Oint (UD)*) 1 Applic Oint, 1 APPLIC TOP ONCE, #7 PKT APPLY TO Prov:CLAIRE ALLRED PA-C 07/25/18 Medications Current Medications Baclofen (Lioresal) 10 mg Q8 PO Last administered on 10/20/18at 06:30; Admin Dose 10 MG; Start 10/19/18 at 22:00 Gabapentin (Neurontin) 300 mg TID PO Last administered on 10/20/18at 12:12; Admin Dose 300 MG; Start 10/19/18 at 21:00 Memantine (Namenda) 10 mg DAILY PO Last administered on 10/20/18at 09:53; Admin Dose 10 MG; Start 10/20/18 at 09:00 Tramadol HCl (Ultram) 50 mg Q6H PRN PO PAIN; Start 10/19/18 at 18:30 Apixaban (Eliquis) 5 mg BID PO Last administered on 10/20/18at 09:53; Admin Dose 5 MG; Start 10/19/18 at 21:00 IV Flush (NS 3 ml) 3 ml PER PROTOCOL IV ; Start 10/19/18 at 19:00 Ondansetron HCl (Zofran Inj) 4 mg Q6H PRN IV NAUSEA/VOMITING; Start 10/19/18 at 19:00 Acetaminophen (Tylenol Tab) 650 mg Q6H PRN PO .PAIN 1-3 OR TEMP; Start 10/19/18 at 19:00 Docusate Sodium (Colace) 100 mg Q12H PRN PO .CONSTIPATION; Start 10/19/18 at 19:00 Magnesium Hydroxide (Milk Of Mag) 30 ml DAILY PRN PO .CONSTIPATION; Start 10/19/18 at 19:00 Famotidine (Pepcid) 20 mg Q12 PO Last administered on 10/20/18 09:53; Admin Dose 20 MG; Start 10/19/18 at 21:00 Ceftriaxone Sodium 50 ml @ 100 mls/hr Q24H IVPB Last administered on 10/19/18at 21:47; Admin Dose 100 MLS/HR; Start 10/19/18 at 19:00 Albuterol (Proventil 0.083% (Neb)) 2.5 mg Q2H RESP THERAPY PRN NEB SHORTNESS OF BREATH; Start 10/19/18 at 19:00 Ferrous Sulfate (Ferrous Sulfate (Ec)) 325 mg DAILY PO Last administered on 10/20/18 09:53; Admin Dose 325 MG; Start 10/20/18 at 09:00 Furosemide (Lasix) 40 mg DAILY IV Last administered on 10/20/18 09:57; Admin Dose 40 MG; Start 10/20/18 at 09:00 Metoprolol Tartrate (Lopressor) 25 mg BID PO Last administered on 10/20/18 09:54; Admin Dose 25 MG; Start 10/20/18 at 01:00 Diltiazem HCl 125 ml @ 5 mls/hr TITRATE IV Last administered on 10/20/18 04:52; Admin Dose 5 MLS/HR; Start 10/20/18 at 04:15 Vitamin A/Vitamin D (Vitamin A & D Oint) 1 applic Q4 PRN TOP chapped lips Last administered on 10/20/18at 12:13; Admin Dose 1 APPLIC; Start 10/20/18 at 11:30 Allergies: Coded Allergies: codeine (Verified Allergy, Unknown, RASH ON HAND, 10/19/18) Past Surgical History Past Surgical Hx: other (knee replacement x2, back surgery) Social History Alcohol Use: none Smoking Status: Unknown if ever smoked Drug Use: none Exam/Review of Systems Exam Vitals Vital Signs Date Temp Pulse Resp B/P (MAP) Pulse Ox O2 O2 Flow FiO2 Time Delivery Rate 10/20/18 Nasal 2.0 12:52 Cannula 10/20/18 64 12:18 10/20/18 98.7 18 124/60 98 11:31 (81) Constitutional: alert, oriented Psych: no complaints, nl mood/affect Head: normocephalic, atraumatic Neck: supple, jvd (8-9cm) Respiratory: crackles/rales (bases to mid lungs ); No clear to auscultation, No wheezing Cardiovascular: regular rate and rhythm, systolic murmur (2/6 JESSICA); No edema Gastrointestinal: soft, non-tender; No distended Musculoskeletal: nl extremities to inspection Neurological: nl mental status, nl speech Results Result Diagram: 10/20/182 10/20/18 0452 Results 24hrs Laboratory Tests Test 10/19/18 16:06 10/19/18 17:19 10/19/18 18:25 10/19/18 20:44 White Blood Count 12.7 #H Red Blood Count 3.79 L Hemoglobin 9.6 #L Hematocrit 34.5 L Mean Corpuscular 91.0 Volume Mean Corpuscular 25.3 L Hemoglobin Mean Corpuscular 27.8 L Hemoglobin Concent Red Cell 15.4 H Distribution Width Platelet Count 313 # Mean Platelet Volume 10.0 Immature 0.900 H Granulocytes % Neutrophils % 77.6 H Lymphocytes % 17.4 Monocytes % 3.3 Eosinophils % 0.3 Basophils % 0.5 Nucleated Red Blood 0.0 Cells % Immature 0.110 H Granulocytes # Neutrophils # 9.8 H Lymphocytes # 2.2 Monocytes # 0.4 Eosinophils # 0.0 Basophils # 0.1 Nucleated Red Blood 0.0 Cells # Prothrombin Time 19.1 H Prothrombin Time 1.5 Ratio INR International 1.60 Normalized Ratio Activated 29.6 Partial Thromboplast Time Sodium Level 140 Potassium Level 3.8 Chloride Level 106 Carbon Dioxide Level 31 Anion Gap 3 L Blood Urea Nitrogen 16 Creatinine 0.58 Est Glomerular Filtrat Rate mL/min Glucose Level 188 Calcium Level 8.3 L Total Bilirubin 0.3 Direct Bilirubin 0.00 Indirect Bilirubin 0.3 Aspartate Amino 23 Transf (AST/SGOT) Alanine 21 Aminotransferase (AL T/SGPT) Alkaline Phosphatase 94 Troponin I < 0.012 B-Type Natriuretic 1690 H Peptide Total Protein 6.7 Albumin 3.6 Globulin 3.10 Albumin/Globulin 1.16 Ratio Urine Color RED Urine Clarity CLOUDY A Urine pH 5.0 Urine Specific 1.028 [place] Urine Ketones NEGATIVE Urine Nitrite POSITIVE A Urine Bilirubin 1+ H Urine Urobilinogen NEGATIVE Urine Leukocyte TRACE A Esterase Urine Microscopic > 182 H RBC Urine Microscopic 52 H WBC Urine Squamous FEW Epithelial Cells Urine Bacteria MANY A Urine Mucus FEW A Urine Yeast FEW A (Budding) Urine Hemoglobin 3+ H Urine Glucose NEGATIVE Urine Total Protein 2+ H POC Venous Lactate 2.8 *H Lactic Acid Level 3.0 *H Test 10/20/18 04:52 White Blood Count 5.8 # Red Blood Count 3.29 L Hemoglobin 8.5 L Hematocrit 29.7 L Mean Corpuscular 90.3 Volume Mean Corpuscular 25.8 L Hemoglobin Mean Corpuscular 28.6 L Hemoglobin Concent Red Cell 15.4 H Distribution Width Platelet Count 215 # Mean Platelet Volume 10.7 H Immature 0.300 Granulocytes % Neutrophils % 77.0 Lymphocytes % 16.1 Monocytes % 6.4 Eosinophils % 0.0 Basophils % 0.2 Nucleated Red Blood 0.0 Cells % Immature 0.020 Granulocytes # Neutrophils # 4.4 Lymphocytes # 0.9 Monocytes # 0.4 Eosinophils # 0.0 Basophils # 0.0 Nucleated Red Blood 0.0 Cells # Sodium Level 144 Potassium Level 4.2 Chloride Level 105 Carbon Dioxide Level 31 Anion Gap 8 Blood Urea Nitrogen 15 Creatinine 0.63 Est Glomerular Filtrat Rate mL/min Glucose Level 128 # Lactic Acid Level 2.2 *H Calcium Level 8.4 Magnesium Level 2.0 Thyroid Stimulating 1.060 Hormone (TSH) Medications Medication Current Medications Baclofen (Lioresal) 10 mg Q8 PO Last administered on 10/20/18at 06:30; Admin Dose 10 MG; Start 10/19/18 at 22:00 Gabapentin (Neurontin) 300 mg TID PO Last administered on 10/20/18at 12:12; Admin Dose 300 MG; Start 10/19/18 at 21:00 Memantine (Namenda) 10 mg DAILY PO Last administered on 10/20/18at 09:53; Admin Dose 10 MG; Start 10/20/18 at 09:00 Tramadol HCl (Ultram) 50 mg Q6H PRN PO PAIN; Start 10/19/18 at 18:30 Apixaban (Eliquis) 5 mg BID PO Last administered on 10/20/18at 09:53; Admin Dose 5 MG; Start 10/19/18 at 21:00 IV Flush (NS 3 ml) 3 ml PER PROTOCOL IV ; Start 10/19/18 at 19:00 Ondansetron HCl (Zofran Inj) 4 mg Q6H PRN IV NAUSEA/VOMITING; Start 10/19/18 at 19:00 Acetaminophen (Tylenol Tab) 650 mg Q6H PRN PO .PAIN 1-3 OR TEMP; Start 10/19/18 at 19:00 Docusate Sodium (Colace) 100 mg Q12H PRN PO .CONSTIPATION; Start 10/19/18 at 19:00 Magnesium Hydroxide (Milk Of Mag) 30 ml DAILY PRN PO .CONSTIPATION; Start 10/19/18 at 19:00 Famotidine (Pepcid) 20 mg Q12 PO Last administered on 10/20/18 09:53; Admin Dose 20 MG; Start 10/19/18 at 21:00 Ceftriaxone Sodium 50 ml @ 100 mls/hr Q24H IVPB Last administered on 10/19/18 21:47; Admin Dose 100 MLS/HR; Start 10/19/18 at 19:00 Albuterol (Proventil 0.083% (Neb)) 2.5 mg Q2H RESP THERAPY PRN NEB SHORTNESS OF BREATH; Start 10/19/18 at 19:00 Ferrous Sulfate (Ferrous Sulfate (Ec)) 325 mg DAILY PO Last administered on 10/20/18 09:53; Admin Dose 325 MG; Start 10/20/18 at 09:00 Furosemide (Lasix) 40 mg DAILY IV Last administered on 10/20/18 09:57; Admin Dose 40 MG; Start 10/20/18 at 09:00 Metoprolol Tartrate (Lopressor) 25 mg BID PO Last administered on 10/20/18 09:54; Admin Dose 25 MG; Start 10/20/18 at 01:00 Diltiazem HCl 125 ml @ 5 mls/hr TITRATE IV Last administered on 10/20/18 04:52; Admin Dose 5 MLS/HR; Start 10/20/18 at 04:15 Vitamin A/Vitamin D (Vitamin A & D Oint) 1 applic Q4 PRN TOP chapped lips Last administered on 10/20/18 12:13; Admin Dose 1 APPLIC; Start 10/20/18 at 11:30 BRADFORD HUSSEIN Oct 20, 2018 13:33
[2018-10-20] MEDS: FUROSEMIDE 20 MG INJ IV SCH (17:20)
[2018-10-20] MEDS: CEFTRIAXONE 1 GM/50 ML (PMX) 50 ML IVPB SCH (21:34)
[2018-10-21] VITALS (12 sets, daily range): BP systolic 117–140; BP diastolic 57–80; PULSE 57–182; RESP 16–18
[2018-10-21] MEDS: BACLOFEN 10 MG TAB PO SCH ×3 (06:00→21:41)
[2018-10-21] MEDS: FUROSEMIDE 20 MG INJ IV SCH (06:18)
[2018-10-21] MEDS: FAMOTIDINE 20 MG TAB PO SCH ×2 (08:44→21:16)
[2018-10-21] MEDS: MEMANTINE 10 MG TAB PO SCH (08:44)
[2018-10-21] MEDS: GABAPENTIN 300 MG CAP PO SCH ×3 (08:44→21:16)
[2018-10-21] MEDS: FERROUS SULFATE (EC) 325 MG TAB PO SCH (08:44)
[2018-10-21] MEDS: APIXABAN 5 MG TABLET PO SCH ×2 (08:44→21:16)
[2018-10-21] MEDS: METOPROLOL 25 MG TAB PO SCH ×2 (08:45→21:17)
--- NOTE | 2018-10-21 11:50 | RADRPT ---
Echocardiogram Report Patient Name: XAVI JONESPatient ID: [id number] : [id number] (83y 5m)Study Date: 10/20/2018 12:58:57 PM Gender: FAccession #: [id number] Tech: SABI Location: Ref.Physician: ASHWIN TAYLOR Height(Cm): BSA: Weight(Kg): Quality: GoodAccount #: Procedures: Echocardiographic Report: Transthoracic echocardiogram with complete 2D, M-Mode, and doppler examination. Indications: Evaluate Left Ventricular function. Measurements: 2D/M Mode Doppler Measurement Value Normal Range Measurement Value Normal Range LVIDd 2D 4.7 [ 3.8 - 5.2 ] cm CARY Vmax 2.1 [ 2.0 - 4.0 ] cm2 LVIDs 2D 3.0 [ 2.2 - 3.5 ] cm AV Mean Guy 1.0 [ 70.0 - 90.0 ] cm/sec LVPWd 2D 1.2 [ 0.6 - 0.9 ] cm AV Mean PG 4.0 [ 2.0 - 4.0 ] mmHg IVSd 2D 1.2 [ 0.6 - 0.9 ] cm AV Peak Guy 1.4 [ 100.0 - 170.0 ] cm/sec IVS/LVPW 2D 1.0 ratio AV Peak PG 8.0 [ 2.0 - 9.0 ] mmHg EF 2D 65.0 [ 54.0 - 74.0 ] percent AV VTI 29.6 cm LVOT Diam 2.0 [ 2.1 - 2.5 ] cm LVOT Peak Guy 0.9 [ 70.0 - 110.0 ] cm/sec LVOT Area 3.1 cm2 LVOT Peak PG 3.0 [ 2.0 - 6.0 ] mmHg MV E Peak Guy 1.1 [ 60.0 - 130.0 ] cm/sec MV A Peak Guy 0.5 [ 100.0 - 120.0 ] cm/sec MV E/A 2.1 [ 0.8 - 1.5 ] ratio MV Decel Time 211 [ 104 - 258 ] msec Lat E` Guy 0.1 [ 10.0 - 15.0 ] cm/sec Med E` Guy 0.0 cm/sec MV E/A 2.1 [ 0.8 - 1.5 ] ratio TR Peak Guy 2.8 [ 100.0 - 280.0 ] cm/sec TR Peak PG 32.0 mmHg PV Peak Guy 0.6 [ 40.0 - 80.0 ] cm/sec PV Peak PG 1.0 mmHg RA Pressure 3.0 mmHg Findings: Left Ventricle: Normal left ventricular systolic function. Normal left ventricular cavity size. Mild concentric left ventricular hypertrophy. Ejection fraction is visually estimated at 60 %. Tissue Doppler/Mitral Doppler indices are consistent with restrictive physiology with markedly elevated left atrial pressure (Stage III-IV diastolic dysfunction). Right Ventricle: Normal right ventricular size. Normal right ventricular systolic function. Left Atrium: There is moderate enlargement of left atrium. Right Atrium: There is moderate enlargement of right atrium. Mitral Valve: Mild mitral annular calcification. Mild mitral valve regurgitation. Aortic Valve: Normal appearance of the aortic valve. No significant aortic stenosis or insufficiency. Tricuspid Valve: Normal appearance of the tricuspid valve. Right ventricular systolic pressure is consistent with mild pulmonary hypertension. Estimated peak PA systolic pressure 35 mmHg. There is mild tricuspid regurgitation. Pulmonic Valve: Normal pulmonic valve appearance. There is trace pulmonic regurgitation. Pericardium: Normal pericardium with no significant pericardial effusion. Pleural effusion seen. Aorta: Normal aortic root. IVC: Normal size and normal respiratory collapse consistent with normal right atrial pressure. Conclusions: Normal left ventricular systolic function. Normal left ventricular cavity size. Mild concentric left ventricular hypertrophy. Ejection fraction is visually estimated at 60 %. Tissue Doppler/Mitral Doppler indices are consistent with restrictive physiology with markedly elevated left atrial pressure (Stage III-IV diastolic dysfunction). No significant valvular stenosis or regurgitation seen. There is moderate enlargement of left atrium. Estimated peak PA systolic pressure 35 mmHg. Normal size and normal respiratory collapse consistent with normal right atrial pressure. Electronically Signed By: Kristopher Martins 2018-10-21 11:49:21 [facility]
--- NOTE | 2018-10-21 12:46 | CONS ---
Assessment/Plan Assessment/Plan Hospital Course (Demo Recall) Paroxysmal atrial fibrillation: Now back in sinus. Already on Eliquis. If recurrence, would place on amiodarone drip and consider custodial amiodarone PO. No recurrence so far Acute ?diastolic CHF: EF preserved. Now euvolemic Possible CAP UTI h/o right leg DVT Dementia: mild -change to lasix 20mg PO daily -continue Eliquis 5mg BID -metoprolol 25mg BID -amiodarone drip if recurrence and persistent afib Likely d/c tomorrow with above meds Consultation Date/Type/Reason Admit Date/Time Oct 19, 2018 at 17:45 Initial Consult Date 10/20/18 Type of Consult Cardiology Requesting Provider: ASHWIN TAYLOR MD Date/Time of Note DATE: 10/21/18 TIME: 12:45 24 HR Interval Summary Free Text/Dictation No further afib,. No SOB. No complaints Exam/Review of Systems Exam Vitals Vital Signs Date Temp Pulse Resp B/P (MAP) Pulse Ox O2 O2 Flow FiO2 Time Delivery Rate 10/21/18 2.0 12:32 10/21/18 63 12:15 10/21/18 Nasal 12:14 Cannula 10/21/18 98.7 18 140/80 98 11:45 (100) Intake and Output 10/20/18 10/20/18 10/21/18 1515:00 23:00 07:00 IntakeIntake Total 85 ml 1000 ml 450 ml BalanceBalance 85 ml 1000 ml 450 ml Constitutional: alert, oriented Psych: no complaints, nl mood/affect Neck: supple; No jvd Respiratory: clear to auscultation; No crackles/rales Cardiovascular: regular rate and rhythm, edema (trace-1+ ankles ), systolic murmur (2/6 JESSICA) Gastrointestinal: soft, non-tender; No distended Neurological: nl mental status, nl speech Results Result Diagram: 10/20/1845110/20/18451 Medications Medication Current Medications Baclofen (Lioresal) 10 mg Q8 PO Last administered on 10/20/18at 21:34; Admin Dose 10 MG; Start 10/19/18 at 22:00 Gabapentin (Neurontin) 300 mg TID PO Last administered on 10/20/18at 21:34; Admin Dose 300 MG; Start 10/19/18 at 21:00 Memantine (Namenda) 10 mg DAILY PO Last administered on 10/21/18 08:44; Admin Dose 10 MG; Start 10/20/18 at 09:00 Tramadol HCl (Ultram) 50 mg Q6H PRN PO PAIN; Start 10/19/18 at 18:30 Apixaban (Eliquis) 5 mg BID PO Last administered on 10/21/18 08:44; Admin Dose 5 MG; Start 10/19/18 at 21:00 IV Flush (NS 3 ml) 3 ml PER PROTOCOL IV ; Start 10/19/18 at 19:00 Ondansetron HCl (Zofran Inj) 4 mg Q6H PRN IV NAUSEA/VOMITING; Start 10/19/18 at 19:00 Acetaminophen (Tylenol Tab) 650 mg Q6H PRN PO .PAIN 1-3 OR TEMP; Start 10/19/18 at 19:00 Docusate Sodium (Colace) 100 mg Q12H PRN PO .CONSTIPATION Last administered on 10/21/18 08:44; Admin Dose 100 MG; Start 10/19/18 at 19:00 Magnesium Hydroxide (Milk Of Mag) 30 ml DAILY PRN PO .CONSTIPATION Last administered on 10/21/18 08:44; Admin Dose 30 ML; Start 10/19/18 at 19:00 Famotidine (Pepcid) 20 mg Q12 PO Last administered on 10/21/18 08:44; Admin Dose 20 MG; Start 10/19/18 at 21:00 Albuterol (Proventil 0.083% (Neb)) 2.5 mg Q2H RESP THERAPY PRN NEB SHORTNESS OF BREATH; Start 10/19/18 at 19:00 Ferrous Sulfate (Ferrous Sulfate (Ec)) 325 mg DAILY PO Last administered on 10/21/18 08:44; Admin Dose 325 MG; Start 10/20/18 at 09:00 Metoprolol Tartrate (Lopressor) 25 mg BID PO Last administered on 10/21/18 08:45; Admin Dose 25 MG; Start 10/20/18 at 01:00 Diltiazem HCl 125 ml @ 5 mls/hr TITRATE IV Last administered on 10/20/18 04:52; Admin Dose 5 MLS/HR; Start 10/20/18 at 04:15 Vitamin A/Vitamin D (Vitamin A & D Oint) 1 applic Q4 PRN TOP chapped lips Last administered on 10/20/18at 17:20; Admin Dose 1 APPLIC; Start 10/20/18 at 11:30 Furosemide (Lasix) 20 mg BID DIURETICS IV Last administered on 10/21/18 06:18; Admin Dose 20 MG; Start 10/20/18 at 18:00 Ceftriaxone Sodium 50 ml @ 100 mls/hr Q24H IVPB Last administered on 10/20/18at 21:34; Admin Dose 100 MLS/HR; Start 10/20/18 at 20:00 BRADFORD HUSSEIN Oct 21, 2018 12:46
--- NOTE | 2018-10-21 14:15 | PN ---
Date/Time of Note Date/Time of Note DATE: 10/21/18 TIME: 14:12 Assessment/Plan VTE Prophylaxis Risk score (from Ns)>0 risk: 6 SCD applied (from Ns): Yes Pharmacological prophylaxis: heparin Lines/Catheters IV Catheter Type (from [facility]): [place] Assessment/Plan Hospital Course 1. Afib with RVR - Now in sinus rhythm. Continue metoprolol. Monitor another 24 hours on telemetry - Contionue eliquis 2. Acute on chronic diastolic HF - ECHO shows nomral LVEF - Continue lasix per Dr Martins 3. UTI - Ceftriaxone x 3 doses - patient does admit to burning - Urine cx noted with gram neg rods 4. RLE DVT - recently seen by PMD who repeat dopplers and states clot dissolving - continue on Eliquis 5. Anemia, iron deficiency - continue home iron supplements 6. Disposition - Discharge home tomorrow if stable. Lives with her niece Result Diagram: 10/20/1845110/20/18451 Subjective 24 Hr Interval Summary Free Text/Dictation Doing well, rhythm now in sinus Breathing comfortably Exam/Review of Systems Exam Vitals Vital Signs Date Temp Pulse Resp B/P (MAP) Pulse Ox O2 O2 Flow FiO2 Time Delivery Rate 10/21/18 Nasal 2.0 13:06 Cannula 10/21/18 63 12:15 10/21/18 98.7 18 140/80 98 11:45 (100) Intake and Output 10/20/18 10/20/18 10/21/18 1515:00 23:00 07:00 IntakeIntake Total 85 ml 1000 ml 450 ml BalanceBalance 85 ml 1000 ml 450 ml Constitutional: alert, oriented, well developed Psych: no complaints, nl mood/affect Head: normocephalic, atraumatic Eyes: nl conjunctiva, EOMI, nl lids, nl sclera, PERRL ENMT: nl external ears & nose, nl lips & teeth, nl nasal mucosa & septum Neck: supple, non-tender Respiratory: clear to auscultation, normal air movement Cardiovascular: regular rate and rhythm, nl pulses Gastrointestinal: soft, nl liver, spleen, non-tender Musculoskeletal: nl extremities to inspection, nl gait and stance Extremities: normal pulses 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, nl mental status, nl speech, nl strength Skin: nl turgor; No rash or lesions Lymph: nl lymph nodes Medications Medication Current Medications Baclofen (Lioresal) 10 mg Q8 PO Last administered on 10/20/18 21:34; Admin Dose 10 MG; Start 10/19/18 at 22:00 Gabapentin (Neurontin) 300 mg TID PO Last administered on 10/20/18 21:34; Admin Dose 300 MG; Start 10/19/18 at 21:00 Memantine (Namenda) 10 mg DAILY PO Last administered on 10/21/18 08:44; Admin Dose 10 MG; Start 10/20/18 at 09:00 Tramadol HCl (Ultram) 50 mg Q6H PRN PO PAIN; Start 10/19/18 at 18:30 Apixaban (Eliquis) 5 mg BID PO Last administered on 10/21/18 08:44; Admin Dose 5 MG; Start 10/19/18 at 21:00 IV Flush (NS 3 ml) 3 ml PER PROTOCOL IV ; Start 10/19/18 at 19:00 Ondansetron HCl (Zofran Inj) 4 mg Q6H PRN IV NAUSEA/VOMITING; Start 10/19/18 at 19:00 Acetaminophen (Tylenol Tab) 650 mg Q6H PRN PO .PAIN 1-3 OR TEMP; Start 10/19/18 at 19:00 Docusate Sodium (Colace) 100 mg Q12H PRN PO .CONSTIPATION Last administered on 10/21/18 08:44; Admin Dose 100 MG; Start 10/19/18 at 19:00 Magnesium Hydroxide (Milk Of Mag) 30 ml DAILY PRN PO .CONSTIPATION Last administered on 10/21/18 08:44; Admin Dose 30 ML; Start 10/19/18 at 19:00 Famotidine (Pepcid) 20 mg Q12 PO Last administered on 10/21/18 08:44; Admin Dose 20 MG; Start 10/19/18 at 21:00 Albuterol (Proventil 0.083% (Neb)) 2.5 mg Q2H RESP THERAPY PRN NEB SHORTNESS OF BREATH; Start 10/19/18 at 19:00 Ferrous Sulfate (Ferrous Sulfate (Ec)) 325 mg DAILY PO Last administered on 10/21/18 08:44; Admin Dose 325 MG; Start 10/20/18 at 09:00 Metoprolol Tartrate (Lopressor) 25 mg BID PO Last administered on 10/21/18 08:45; Admin Dose 25 MG; Start 10/20/18 at 01:00 Diltiazem HCl 125 ml @ 5 mls/hr TITRATE IV Last administered on 10/20/18 04:52; Admin Dose 5 MLS/HR; Start 10/20/18 at 04:15 Vitamin A/Vitamin D (Vitamin A & D Oint) 1 applic Q4 PRN TOP chapped lips Last administered on 10/20/18at 17:20; Admin Dose 1 APPLIC; Start 10/20/18 at 11:30 Ceftriaxone Sodium 50 ml @ 100 mls/hr Q24H IVPB Last administered on 10/20/18at 21:34; Admin Dose 100 MLS/HR; Start 10/20/18 at 20:00 Furosemide (Lasix) 20 mg DAILY PO ; Start 10/22/18 at 09:00 MARY ANN ENCISO MD Oct 21, 2018 14:15
[2018-10-21] MEDS: CEFTRIAXONE 1 GM/50 ML (PMX) 50 ML IVPB SCH (21:16)
[2018-10-21] MEDS ORDERED: METOPROLOL 5 MG INJ IV ONE (23:30)
[2018-10-22] VITALS: BP 100/62; PULSE 128; PULSE 170; RESP 18
[2018-10-22] MEDS ORDERED: DILTIAZEM 25 MG INJ IV ONE (01:00)
[2018-10-22 04:00] VITALS: BP 105/61; PULSE 100; PULSE 119; RESP 18
[2018-10-22] MEDS: BACLOFEN 10 MG TAB PO SCH ×2 (06:23→13:25)
[2018-10-22 07:19] VITALS: BP 101/74; PULSE 88; RESP 17
[2018-10-22 08:01] VITALS: PULSE 134
[2018-10-22] MEDS ORDERED: FUROSEMIDE 20 MG TAB PO SCH (09:00)
[2018-10-22] MEDS: FERROUS SULFATE (EC) 325 MG TAB PO SCH (09:24)
[2018-10-22] MEDS: APIXABAN 5 MG TABLET PO SCH (09:24)
[2018-10-22] MEDS: GABAPENTIN 300 MG CAP PO SCH ×2 (09:24→13:25)
[2018-10-22] MEDS: FAMOTIDINE 20 MG TAB PO SCH (09:24)
[2018-10-22] MEDS: MEMANTINE 10 MG TAB PO SCH (09:25)
[2018-10-22] MEDS: METOPROLOL 25 MG TAB PO SCH (09:25)
[2018-10-22] MEDS ORDERED: LAS20 PO (11:22)
--- NOTE | 2018-10-22 11:24 | PDOCDIS ---
Discharge Instructions CONDITION [id number] Patient Condition: Mdrep2y Good HOME CARE INSTRUCTIONS: [id number] Diet Instructions: [id number] Regular ACTIVITY: [id number] Activity Restrictions: [id number] No Restrictions FOLLOW UP/APPOINTMENTS Follow-up Plan FOLLOW UP WITH YOUR PCP IN 1-2 WEEKS ZULMA MEHTA Oct 22, 2018 11:24
[2018-10-22 11:29] VITALS: BP 82/54; PULSE 88; RESP 18
[2018-10-22] MEDS ORDERED: CEFTRIAXONE 1 GM/50 ML (PMX) 50 ML IVPB ONE (11:30)
[2018-10-22 12:01] VITALS: PULSE 71
[2018-10-22] MEDS ORDERED: AMIO200T4 PO (14:22)
--- NOTE | 2018-10-22 16:39 | CONS ---
Assessment/Plan Assessment/Plan Hospital Course (Demo Recall) Paroxysmal atrial fibrillation: Already on Eliquis. Was back in sinus, then had second recurrence and now back in sinus. Rhythm control is reasonable. Acute diastolic CHF: EF preserved. Now euvolemic Possible CAP UTI h/o right leg DVT Dementia: mild -ok for d/c -amiodarone 200mg BID for one month, then daily -f/u with me 2 weeks -lasix 20mg PO daily -continue Eliquis 5mg BID -metoprolol 25mg BID Consultation Date/Type/Reason Admit Date/Time Oct 19, 2018 at 17:45 Initial Consult Date 10/20/18 Type of Consult Cardiology Requesting Provider: ASHWIN TAYLOR MD Date/Time of Note DATE: 10/22/18 TIME: 16:34 24 HR Interval Summary Free Text/Dictation Had afib with RVR overnight, then controlled afib this am, now back in sinus. No SOB. Plan for d/c today Exam/Review of Systems Exam Vitals Vital Signs Date Temp Pulse Resp B/P (MAP) Pulse Ox O2 O2 Flow FiO2 Time Delivery Rate 10/22/18 2.0 14:42 10/22/18 71 12:01 10/22/18 98.0 18 82/54 (63) 90 11:29 10/22/18 Nasal 09:00 Cannula Intake and Output 10/21/18 10/21/18 10/22/18 1515:00 23:00 07:00 IntakeIntake Total 800 ml 600 ml BalanceBalance 800 ml 600 ml Constitutional: alert, oriented Psych: no complaints, nl mood/affect Head: normocephalic, atraumatic Neck: supple; No jvd Respiratory: clear to auscultation; No crackles/rales Cardiovascular: regular rate and rhythm, systolic murmur (2/6 JESSICA); No edema Gastrointestinal: soft, non-tender; No distended Neurological: nl mental status, nl speech Results Result Diagram: 10/22/18 0950 10/22/18 0950 Results 24hrs Laboratory Tests Test 10/22/18 09:50 White Blood Count 6.6 Red Blood Count 3.57 L Hemoglobin 9.4 L Hematocrit 32.3 L Mean Corpuscular Volume 90.5 Mean Corpuscular Hemoglobin 26.3 L Mean Corpuscular Hemoglobin Concent 29.1 L Red Cell Distribution Width 16.6 H Platelet Count 215 Mean Platelet Volume 10.5 H Immature Granulocytes % 0.300 Neutrophils % 64.3 Lymphocytes % 25.2 Monocytes % 7.9 Eosinophils % 1.7 Basophils % 0.6 Nucleated Red Blood Cells % 0.0 Immature Granulocytes # 0.020 Neutrophils # 4.3 Lymphocytes # 1.7 Monocytes # 0.5 Eosinophils # 0.1 Basophils # 0.0 Nucleated Red Blood Cells # 0.0 Sodium Level 140 Potassium Level 4.2 Chloride Level 102 Carbon Dioxide Level 38 H Anion Gap 0 L Blood Urea Nitrogen 19 Creatinine 0.62 Est Glomerular Filtrat Rate mL/min Glucose Level 103 Calcium Level 8.0 L Total Bilirubin 0.2 Direct Bilirubin 0.00 Indirect Bilirubin 0.2 Aspartate Amino Transf (AST/SGOT) 21 Alanine Aminotransferase (ALT/SGPT) 23 Alkaline Phosphatase 69 Total Protein 5.4 L Albumin 2.9 L Globulin 2.50 Albumin/Globulin Ratio 1.16 BRADFORD HUSSEIN Oct 22, 2018 16:39
--- NOTE | 2018-10-22 17:47 | DS ---
Date/Time of Note Date/Time of Note DATE: 10/22/18 TIME: 17:41 Discharge Summary Admission/Discharge Info Admit Date/Time Oct 19, 2018 at 17:45 Discharge Date/Time Oct 22, 2018 at 15:15 Discharge Diagnosis 1. Afib with RVR - Now in sinus rhythm. Continue home metoprolol and Eliquis -DC with amiodarone per cardiology 2. Acute on chronic diastolic HF - ECHO shows a preserved EF -DC with Lasix p.o. Procardia 3. UTI -Status post ceftriaxone x 3 doses - patient does admit to burning - Urine cx grew E. coli 4. RLE DVT - recently seen by PMD who repeat dopplers and states clot dissolving - continue on Eliquis 5. Normocytic anemia likely secondary to chronic disease Patient Condition: Good Hospital Course Patient is an 83-year-old female with a history of DVT, diastolic heart failure, anemia presents with A. fib with RVR as well as pulmonary edema. Patient did receive diltiazem IV and did convert back to sinus rhythm, patient was seen by cardiology and recommendation was to continue home metoprolol and Eliquis. Echo showed diastolic heart failure with a preserved EF patient was placed on Lasix with improvement of shortness of breath. Patient did have a UTI with urine culture growing E. coli, patient is status post 3 days of Rocephin. Cardiology cleared patient for DC, patient was to continue with amiodarone p.o. as well as Lasix, on the day of discharge patient's vitals, labs and physical exam are stable. Home Meds Active Scripts Amiodarone Hcl* (Amiodarone Hcl*) 200 Mg Tablet, 200 MG PO BID for 30 Days, #60 TAB Prov:ZULMA MEHTA 10/22/18 Furosemide (Lasix) 20 Mg Tab, 20 MG PO DAILY, #60 TAB Prov:ZULMA MEHTA 10/22/18 Reported Medications Pravastatin Sodium* (Pravastatin Sodium*) 40 Mg Tablet, 40 MG PO HS, TAB 10/19/18 Temazepam* (Restoril*) 15 Mg Capsule, 15 MG PO HS PRN for INSOMNIA, CAP 10/19/18 Fluoxetine Hcl* (Fluoxetine Hcl*) 10 Mg Tablet, 10 MG PO DAILY, TAB 10/19/18 Donepezil* (Aricept*) 10 Mg Tablet, 10 MG PO DAILY, TAB 10/19/18 Ferrous Sulfate* (Ferrous Sulfate*) 325 Mg Tabec, 325 MG PO BID, TAB 10/19/18 Apixaban* (Eliquis*) 5 Mg Tablet, 5 MG PO BID, TAB 10/19/18 Metoprolol Tartrate* (Lopressor*) 25 Mg Tab, 25 MG PO BID, #60 TAB 10/19/18 Memantine* (Namenda*) 10 Mg Tablet, 10 MG PO DAILY, #30 TAB 12/28/17 Tramadol Hcl* (Ultram*) 50 Mg Tablet, 50 MG PO Q6H PRN for PAIN, TAB 12/28/17 Discontinued Reported Medications Gabapentin* (Gabapentin*) 300 Mg Capsule, 300 MG PO TID, #90 CAP 12/28/17 Baclofen* (Baclofen*) 10 Mg Tablet, 10 MG PO Q8, TAB 12/28/17 Discontinued Scripts Bacitracin* (Bacitracin Oint (UD)*) 1 Applic Oint, 1 APPLIC TOP ONCE, #7 PKT APPLY TO Prov:CLAIRE ALLRED PA-C 07/25/18 Follow-up Plan FOLLOW UP WITH YOUR PCP IN 1-2 WEEKS Primary Care Provider Not On Staff Doctor Time spent on discharge: > 30 minutes ZULMA MEHTA Oct 22, 2018 17:47
== END 2018-10-22 15:15 | disposition home or self-care (01) | DRG 308 ==
LOC: E/R 15:34 → TEL 17:45
PROVIDERS: ADMIT Internal Medicine; ATTEND Internal Medicine
DX: I48.0 Paroxysmal atrial fibrillation (principal); J18.9 Pneumonia, unspecified organism; I50.33 Acute on chronic diastolic (congestive) heart failure; I82.401 Acute embolism and thrombosis of unspecified deep veins of right lower extremity; N39.0 Urinary tract infection, site not specified; I11.0 Hypertensive heart disease with heart failure; F02.80 Dementia in other diseases classified elsewhere, unspecified severity, without behavioral disturbance, psychotic disturbance, mood disturbance, and anxiety; G30.9 Alzheimer's disease, unspecified; D63.8 Anemia in other chronic diseases classified elsewhere; D50.9 Iron deficiency anemia, unspecified; F32.9 Major depressive disorder, single episode, unspecified; E89.0 Postprocedural hypothyroidism; Z96.653 Presence of artificial knee joint, bilateral; B96.20 Unspecified Escherichia coli [E. coli] as the cause of diseases classified elsewhere
CPT/HCPCS: 36415; 71045; 71275; 80048; 80053; 81001; 83605; 83735; 83880; 84443; 84484; 85025; 85610; 85730; 87040; 87086; 93005; 93306; 94644; 96374; 96375; 97110; 97161; 97530; J0456; J0696; J1100; J1940; J7040; Q9967

== ENCOUNTER 2019-02-04 09:29 | Emergency (ER) | payer MEDICARE, OTHER ==
[~2019-02-04] VITALS: Ht 167.6 cm; Wt 101.1 kg
[~2019-02-04 09:29] MED LIST changes: +AMIO200T4 PO; +APIX5TAB PO; -BACITUD TOP; -BACL10TA PO; +DONE10TA7 PO; +FER325 PO; +FLUO10TA PO; -GABA300C16 PO; +LAS20 PO; +METO-448 PO; +PRAV40TA76 PO; +TEMA15CA6 PO
[2019-02-04 09:34] VITALS: Ht 167.6 cm; Wt 101.1 kg
[2019-02-04] MEDS ORDERED: IBUPROFEN 800 MG TAB PO ONE (10:00)
[2019-02-04] MEDS ORDERED: TRAM50TA PO (10:25)
[2019-02-04] MEDS ORDERED: DOCU100C59 PO (10:26)
[2019-02-04] MEDS ORDERED: FURO20TA3 PO (10:27)
[2019-02-04] MEDS ORDERED: FLUO10TA PO (10:27)
[2019-02-04] MEDS ORDERED: AMIO200T4 PO (10:32)
[2019-02-04] MEDS ORDERED: FER325 PO (10:32)
[2019-02-04] MEDS ORDERED: MEMA10TA PO (10:32)
[2019-02-04] MEDS ORDERED: APIX5TAB PO (10:33)
[2019-02-04] MEDS ORDERED: DONE10TA7 PO (10:34)
[2019-02-04] MEDS ORDERED: METO-448 PO (10:34)
[2019-02-04] MEDS ORDERED: PRAV40TA76 PO (10:34)
[2019-02-04] MEDS ORDERED: TEMA15CA PO (10:35)
[2019-02-04] MEDS ORDERED: IBUP-1542 PO (11:02)
--- NOTE | 2019-02-04 11:05 | ERD ---
ER Documentation Chief Complaint Chief Complaint left rib, under breast pain x1wk, no visible trauma. worse w/coughing HPI Patient is an 83-year-old female who presents with "left-sided booby pain". She says that she was putting her bra on and it was tight and she says "I think I might of bruised something". The pain comes and goes. She said no treatment as of yet. She had a cold recently was put on antibiotics for 1 week. Her family member thinks it might be related to cough she has had coughing. The patient does have a primary doctor. Upon review of old medical records the patient has various visits for various complaints. ROS All systems reviewed and are negative except as per history of present illness. Medications Home Meds Active Scripts Ibuprofen* (Motrin*) 600 Mg Tab, 600 MG PO Q6H PRN for PAIN AND OR ELEVATED TEMP, #30 TAB Prov:LUCIANO GONGORA MD 02/04/19 Reported Medications Temazepam* (Temazepam*) 15 Mg Capsule, 15 MG PO HS PRN for INSOMNIA, CAP 02/04/19 Donepezil* (Donepezil*) 10 Mg Tablet, 10 MG PO DAILY, #30 TAB 02/04/19 Pravastatin Sodium* (Pravastatin Sodium*) 40 Mg Tablet, 40 MG PO HS, TAB 02/04/19 Metoprolol Tartrate* (Lopressor*) 25 Mg Tab, 25 MG PO BID, #60 TAB 02/04/19 Apixaban* (Eliquis*) 5 Mg Tablet, 5 MG PO BID, TAB 02/04/19 Memantine* (Namenda*) 10 Mg Tablet, 10 MG PO BID, #60 TAB 02/04/19 Ferrous Sulfate* (Ferrous Sulfate*) 325 Mg Tabec, 325 MG PO BID, TAB 02/04/19 Amiodarone Hcl* (Amiodarone Hcl*) 200 Mg Tablet, 200 MG PO BID, #60 TAB 02/04/19 Furosemide* (Furosemide*) 20 Mg Tablet, 20 MG PO DAILY, #60 TAB 02/04/19 Fluoxetine Hcl* (Fluoxetine Hcl*) 10 Mg Tablet, 10 MG PO QAM, TAB 02/04/19 Docusate Sodium (Col-Rite) 100 Mg Capsule, 100 MG PO Q MON,THUR, CAP 02/04/19 Tramadol Hcl* (Ultram*) 50 Mg Tablet, 50 MG PO NEEDED PRN for PAIN, TAB 02/04/19 Discontinued Reported Medications Pravastatin Sodium* (Pravastatin Sodium*) 40 Mg Tablet, 40 MG PO HS, TAB 10/19/18 Temazepam* (Restoril*) 15 Mg Capsule, 15 MG PO HS PRN for INSOMNIA, CAP 10/19/18 Fluoxetine Hcl* (Fluoxetine Hcl*) 10 Mg Tablet, 10 MG PO DAILY, TAB 10/19/18 Donepezil* (Aricept*) 10 Mg Tablet, 10 MG PO DAILY, TAB 10/19/18 Ferrous Sulfate* (Ferrous Sulfate*) 325 Mg Tabec, 325 MG PO BID, TAB 10/19/18 Apixaban* (Eliquis*) 5 Mg Tablet, 5 MG PO BID, TAB 10/19/18 Metoprolol Tartrate* (Lopressor*) 25 Mg Tab, 25 MG PO BID, #60 TAB 10/19/18 Memantine* (Namenda*) 10 Mg Tablet, 10 MG PO DAILY, #30 TAB 12/28/17 Tramadol Hcl* (Ultram*) 50 Mg Tablet, 50 MG PO Q6H PRN for PAIN, TAB 12/28/17 Discontinued Scripts Amiodarone Hcl* (Amiodarone Hcl*) 200 Mg Tablet, 200 MG PO BID for 30 Days, #60 TAB Prov:ZULMA MEHTA 10/22/18 Furosemide (Lasix) 20 Mg Tab, 20 MG PO DAILY, #60 TAB Prov:ZULMA MEHTA 10/22/18 Allergies Allergies: Coded Allergies: codeine (Verified Allergy, Unknown, RASH ON HAND, 02/04/19) PMhx/Soc History of Surgery: Yes (B Hip/knee , Thyroidectomy) Anesthesia Reaction: No (unk) Hx Neurological Disorder: No Hx Respiratory Disorders: No Hx Cardiac Disorders: Yes (HTN, Paroxymal Afib) Hx Psychiatric Problems: Yes (Depression, Dementia) Hx Miscellaneous Medical Probl: No (DVT, PNA, ANEMIA , MILD DEMENTIA .S/P RAHEEM.T KA .) Hx Alcohol Use: No Hx Substance Use: No Hx Tobacco Use: No Smoking Status: Never smoker FmHx Family History: No diabetes Physical Exam Vitals Vital Signs Date Temp Pulse Resp B/P (MAP) Pulse Ox O2 O2 Flow FiO2 Time Delivery Rate 02/04/19 60 18 118/60 96 Room Air 11:12 (79) 02/04/19 98.9 70 18 137/77 94 09:34 (97) Physical Exam Const: No acute distress Head: Atraumatic Eyes: Normal Conjunctiva ENT: Normal External Ears, Nose and Mouth. Neck: Full range of motion. No meningismus. Resp: Clear to auscultation bilaterally Cardio: Regular rate and rhythm, no murmurs, chest wall tenderness palpation which does reproduce her pain Abd: Soft, non tender, non distended. Normal bowel sounds Skin: No petechiae or rashes Back: No midline or flank tenderness Ext: No cyanosis, or edema Neur: Awake and alert Psych: Normal Mood and Affect Results 24 hrs Current Medications Medications Dose Sig/Carol Start Time Status Last (Trade) Ordered Route PRN Stop Time Admin Dose Reason Admin Ibuprofen 800 mg ONCE ONCE 02/04/19 DC 02/04/19 (Motrin) PO 10:00 10:06 02/04/19 10:01 Procedures/MDM EKG read by me: Rate/Rhythm: Regular rate and rhythm at a rate of 61 Intervals: Normal Impression: No evidence of ischemia or arrhythmia Chest x-ray read by radiology. Patient is a 83-year-old female presents with left-sided chest pain. Her chest pain is reproducible with palpation. EKG is normal without signs of ischemia or arrhythmia. Chest x-ray shows no obvious pneumonia or pneumothorax. At this point I doubt acute coronary syndrome, pneumonia, pneumothorax, pulmonary embolism, or aortic dissection. The patient will be discharged with a prescription for ibuprofen. She will need to follow-up closely with her primary doctor within 24 to 48 hours. She can return sooner for any worsening symptoms. Departure Diagnosis: Primary Impression: Chest pain Chest pain type: unspecified Qualified Codes: R07.9 - Chest pain, unspecified Condition: Fair Patient Instructions: Chest Pain, Uncertain Cause Referrals: Dr. Vuong Additional Instructions: Call your primary care doctor TOMORROW for an appointment during the next 1-2 days.See the doctor sooner or return here if your condition worsens before your appointment time. LUCIANO GONGORA MD Feb 04, 2019 11:05
[2019-02-04 11:12] VITALS: BP 118/60; PULSE 60; RESP 18
== END 2019-02-04 11:13 | disposition home or self-care (01) ==
LOC: E/R 09:29
DX: R07.9 Chest pain, unspecified (principal); I10 Essential (primary) hypertension; Z79.01 Long term (current) use of anticoagulants
CPT/HCPCS: 71045; 93005

== ENCOUNTER 2019-05-11 15:26 | Inpatient (IN) | payer MEDICARE, OTHER ==
[~2019-05-11] VITALS: Ht 200.7 cm; Wt 103.7 kg
[~2019-05-11 15:26] MED LIST changes: +CARAS PO; +DOCU100C59 PO; +FURO20TA3 PO; +FURO40TA4 PO; +IBUP-1542 PO; -LAS20 PO; +NITR-58 PO; +PANT40TA4 PO; +SULF-182 PO; +TEMA15CA PO; -TEMA15CA6 PO
[2019-05-11] MEDS ORDERED: FUROSEMIDE 40 MG INJ IV ONE (16:30)
[2019-05-11] MEDS ORDERED: CEFTRIAXONE 1 GM/50 ML (PMX) 50 ML IVPB ONE (17:00)
[2019-05-11] MEDS ORDERED: ACETAMINOPHEN 325 MG TAB PO PRN (18:00)
[2019-05-11] MEDS ORDERED: HYDROCODONE/APAP (5/325) TAB PO PRN (18:00)
[2019-05-11] MEDS ORDERED: NACL 0.9% 3 ML SYG IV SCH (18:00)
[2019-05-11] MEDS ORDERED: ONDANSETRON 4 MG INJ IV PRN (18:00)
[2019-05-11] MEDS ORDERED: PANTOPRAZOLE IV 80 MG in SOD CHLORIDE 0.9% 100 ML IVPB ONE (18:30)
[2019-05-11] MEDS: PANTOPRAZOLE IV 80 MG in SOD CHLORIDE 0.9% 100 ML IV SCH (19:35)
[2019-05-11] MEDS: METOPROLOL 25 MG TAB PO SCH (21:00)
[2019-05-11] MEDS ORDERED: NON-FORMULARY/PATIENT OWN MED (Pravastatin Sodium* 40 MG) PO SCH (21:00)
[2019-05-11] MEDS ORDERED: APIXABAN 5 MG TABLET PO SCH (21:00)
[2019-05-11 21:38] VITALS: Ht 200.7 cm; Wt 103.7 kg
[2019-05-11] MEDS: FERROUS SULFATE (EC) 325 MG TAB PO SCH (21:58)
[2019-05-11] MEDS: ATORVASTATIN 10 MG TAB PO SCH (21:59)
[2019-05-11] MEDS: AMIODARONE 200 MG TAB PO SCH (22:01)
[2019-05-11 22:09] VITALS: BP 158/71; PULSE 67; RESP 19
[2019-05-11] MEDS: MEMANTINE 10 MG TAB PO SCH (23:48)
[2019-05-12 02:00] VITALS: BP 113/59; PULSE 68; RESP 18
[2019-05-12] MEDS: PANTOPRAZOLE IV 80 MG in SOD CHLORIDE 0.9% 100 ML IV SCH (04:33)
[2019-05-12 05:35] VITALS: BP 107/58; PULSE 65
[2019-05-12] MEDS: FUROSEMIDE 20 MG INJ IV SCH ×2 (05:43→17:27)
[2019-05-12 07:44] VITALS: BP 98/63; PULSE 60; RESP 16
[2019-05-12] MEDS: METOPROLOL 25 MG TAB PO SCH ×2 (08:01→21:30)
[2019-05-12] MEDS: AMIODARONE 200 MG TAB PO SCH ×2 (08:42→21:31)
[2019-05-12] MEDS: FERROUS SULFATE (EC) 325 MG TAB PO SCH ×2 (08:42→21:31)
[2019-05-12] MEDS: MEMANTINE 10 MG TAB PO SCH ×2 (08:42→21:30)
[2019-05-12] MEDS: FLUOXETINE 10 MG CAP PO SCH (08:43)
[2019-05-12] MEDS: DONEPEZIL 10 MG TAB PO SCH (08:43)
[2019-05-12 14:34] VITALS: BP 128/78; PULSE 74; RESP 17
[2019-05-12] MEDS: SUCRALFATE (100 MG/ML) 10ML CUP PO SCH ×2 (17:26→21:31)
[2019-05-12] MEDS: CEFTRIAXONE 1 GM/50 ML (PMX) 50 ML IVPB SCH (17:26)
[2019-05-12] MEDS: PANTOPRAZOLE (EC) 40 MG TAB PO SCH (17:26)
[2019-05-12 19:39] VITALS: BP 142/71; PULSE 65; RESP 16
[2019-05-12 19:49] VITALS: PULSE 76
[2019-05-12] MEDS: ATORVASTATIN 10 MG TAB PO SCH (21:31)
[2019-05-12] MEDS ORDERED: LORAZEPAM 2 MG INJ IV ONE (22:00)
[2019-05-13] VITALS (18 sets, daily range): BP systolic 88–149; BP diastolic 57–81; PULSE 60–67; RESP 8–20
[2019-05-13] MEDS: PANTOPRAZOLE (EC) 40 MG TAB PO SCH ×2 (06:00→21:21)
[2019-05-13] MEDS: FUROSEMIDE 20 MG INJ IV SCH ×2 (06:49→21:31)
[2019-05-13] MEDS: SUCRALFATE (100 MG/ML) 10ML CUP PO SCH ×3 (08:34→21:16)
[2019-05-13] MEDS: FLUOXETINE 10 MG CAP PO SCH (08:35)
[2019-05-13] MEDS: FERROUS SULFATE (EC) 325 MG TAB PO SCH ×2 (08:35→21:20)
[2019-05-13] MEDS: METOPROLOL 25 MG TAB PO SCH ×2 (08:35→21:00)
[2019-05-13] MEDS: DONEPEZIL 10 MG TAB PO SCH (08:36)
[2019-05-13] MEDS: AMIODARONE 200 MG TAB PO SCH ×2 (08:36→21:19)
[2019-05-13] MEDS: MEMANTINE 10 MG TAB PO SCH ×2 (08:36→21:20)
[2019-05-13] MEDS ORDERED: LIDOCAINE 2% (SDV) 5 ML INJ ONE (17:38)
[2019-05-13] MEDS ORDERED: LIDOCAINE 4% SOLUTION 50 ML BTL ONE (17:38)
[2019-05-13] MEDS ORDERED: PROPOFOL 20 ML ONE (17:38)
[2019-05-13] MEDS ORDERED: ETOMIDATE 20 MG INJ ONE (17:38)
[2019-05-13] MEDS: CEFTRIAXONE 1 GM/50 ML (PMX) 50 ML IVPB SCH (21:15)
[2019-05-13] MEDS: ATORVASTATIN 10 MG TAB PO SCH (21:18)
[2019-05-13] MEDS: TRIMETHOPRIM/SULFAMETHOX (DS) TAB PO SCH (21:21)
[2019-05-14] MEDS: ZOLPIDEM 5 MG TAB PO PRN ×2 (00:30→20:33)
[2019-05-14 01:05] VITALS: BP 106/58; PULSE 65; RESP 17
[2019-05-14] MEDS: PANTOPRAZOLE (EC) 40 MG TAB PO SCH ×2 (06:28→17:35)
[2019-05-14] MEDS: FUROSEMIDE 20 MG INJ IV SCH ×2 (06:31→17:36)
[2019-05-14 08:02] VITALS: BP 125/67; PULSE 71; RESP 15
[2019-05-14] MEDS: DONEPEZIL 10 MG TAB PO SCH (09:43)
[2019-05-14] MEDS: TRIMETHOPRIM/SULFAMETHOX (DS) TAB PO SCH ×2 (09:43→20:33)
[2019-05-14] MEDS: SUCRALFATE (100 MG/ML) 10ML CUP PO SCH ×4 (09:43→20:33)
[2019-05-14] MEDS: FERROUS SULFATE (EC) 325 MG TAB PO SCH ×2 (09:43→20:32)
[2019-05-14] MEDS: MEMANTINE 10 MG TAB PO SCH ×2 (09:43→20:32)
[2019-05-14] MEDS: FLUOXETINE 10 MG CAP PO SCH (09:44)
[2019-05-14] MEDS: METOPROLOL 25 MG TAB PO SCH ×2 (09:45→20:32)
[2019-05-14] MEDS: AMIODARONE 200 MG TAB PO SCH ×2 (09:45→20:33)
[2019-05-14] MEDS ORDERED: MAGNESIUM SULFATE 2 GM/50 ML 50 ML IVPB ONE (11:30)
[2019-05-14] MEDS: POTASSIUM CHLORIDE (SR) 20 MEQ TAB PO SCH ×2 (12:39→17:35)
[2019-05-14 13:43] VITALS: BP 119/65; PULSE 77; RESP 16
[2019-05-14] MEDS: CEFTRIAXONE 1 GM/50 ML (PMX) 50 ML IVPB SCH (17:36)
[2019-05-14 19:36] VITALS: BP 117/62; PULSE 65; RESP 18
[2019-05-14] MEDS: ATORVASTATIN 10 MG TAB PO SCH (20:33)
[2019-05-15 02:05] VITALS: BP 124/68; PULSE 82; RESP 18
[2019-05-15] MEDS: PANTOPRAZOLE (EC) 40 MG TAB PO SCH ×2 (06:13→17:09)
[2019-05-15] MEDS: FUROSEMIDE 20 MG INJ IV SCH ×2 (06:13→17:11)
[2019-05-15 08:00] VITALS: BP 119/60; PULSE 66; RESP 18
[2019-05-15] MEDS: SUCRALFATE (100 MG/ML) 10ML CUP PO SCH ×4 (09:08→20:37)
[2019-05-15] MEDS: FERROUS SULFATE (EC) 325 MG TAB PO SCH ×2 (09:08→20:36)
[2019-05-15] MEDS: TRIMETHOPRIM/SULFAMETHOX (DS) TAB PO SCH ×2 (09:08→20:36)
[2019-05-15] MEDS: METOPROLOL 25 MG TAB PO SCH ×2 (09:09→20:37)
[2019-05-15] MEDS: MEMANTINE 10 MG TAB PO SCH ×2 (09:09→20:36)
[2019-05-15] MEDS: FLUOXETINE 10 MG CAP PO SCH (09:09)
[2019-05-15] MEDS: AMIODARONE 200 MG TAB PO SCH ×2 (09:09→20:37)
[2019-05-15] MEDS: DONEPEZIL 10 MG TAB PO SCH (09:10)
[2019-05-15 14:01] VITALS: BP 97/54; PULSE 67; RESP 18
[2019-05-15] MEDS ORDERED: MAGNESIUM CITRATE 300 ML BTL PO ONE (14:30)
[2019-05-15] MEDS: CEFTRIAXONE 1 GM/50 ML (PMX) 50 ML IVPB SCH (17:00)
[2019-05-15 19:33] VITALS: BP 110/66; PULSE 75; RESP 18
[2019-05-15] MEDS: ATORVASTATIN 10 MG TAB PO SCH (20:37)
[2019-05-15] MEDS: ZOLPIDEM 5 MG TAB PO PRN (20:38)
[2019-05-16 02:00] VITALS: BP 127/78; PULSE 80; RESP 18
[2019-05-16] MEDS: PANTOPRAZOLE (EC) 40 MG TAB PO SCH (05:49)
[2019-05-16] MEDS: FUROSEMIDE 20 MG INJ IV SCH (05:49)
[2019-05-16 08:01] VITALS: BP 111/62; PULSE 77; RESP 18
[2019-05-16] MEDS: SUCRALFATE (100 MG/ML) 10ML CUP PO SCH ×2 (09:00→12:11)
[2019-05-16] MEDS: METOPROLOL 25 MG TAB PO SCH (09:00)
[2019-05-16] MEDS: FLUOXETINE 10 MG CAP PO SCH (09:00)
[2019-05-16] MEDS: DONEPEZIL 10 MG TAB PO SCH (09:01)
[2019-05-16] MEDS: MEMANTINE 10 MG TAB PO SCH (09:01)
[2019-05-16] MEDS: FERROUS SULFATE (EC) 325 MG TAB PO SCH (09:01)
[2019-05-16] MEDS: AMIODARONE 200 MG TAB PO SCH (09:01)
[2019-05-16] MEDS: TRIMETHOPRIM/SULFAMETHOX (DS) TAB PO SCH (09:01)
== END 2019-05-16 12:35 | DRG 377 ==
LOC: E/R 15:26 → MS3 17:51
PROVIDERS: ADMIT Internal Medicine; ATTEND Internal Medicine
PROC: 0DB78ZX Excision of Stomach, Pylorus, Via Natural or Artificial Opening Endoscopic, Diagnostic (ICD-10-PCS; principal; 2019-05-13 17:00)
DX: K25.4 Chronic or unspecified gastric ulcer with hemorrhage (principal); I50.33 Acute on chronic diastolic (congestive) heart failure; N39.0 Urinary tract infection, site not specified; K22.2 Esophageal obstruction; D50.0 Iron deficiency anemia secondary to blood loss (chronic); I11.0 Hypertensive heart disease with heart failure; I48.0 Paroxysmal atrial fibrillation; F03.90 Unspecified dementia, unspecified severity, without behavioral disturbance, psychotic disturbance, mood disturbance, and anxiety; B95.2 Enterococcus as the cause of diseases classified elsewhere; Z79.02 Long term (current) use of antithrombotics/antiplatelets; Z96.653 Presence of artificial knee joint, bilateral; Z87.891 Personal history of nicotine dependence; Z86.718 Personal history of other venous thrombosis and embolism
CPT/HCPCS: 36415; 71045; 80048; 80053; 80061; 81001; 82550; 82553; 83036; 83690; 83735; 83880; 84100; 84443; 84484; 85014; 85018; 85025; 85610; 85730; 87086; 88305; 88312; 93005; 93306; 93970; 96365; 96375; 97116; 97162; C9113; J0696; J1940; J2060; J3475